=== PATIENT | female | born 1960 | race Caucasian/White ===

== ENCOUNTER 2017-12-02 10:25 | Inpatient (IN) | payer MEDICARE ==
[~2017-12-02] VITALS: Ht 149.9 cm; Wt 49.4 kg
--- NOTE | ~2017-12-02 | CN ---
PATIENT NAME:ANTONINO ALMARAZ MEDICAL RECORD: [id number] : 64 LOCATION:D.MS [id number] ADMIT DATE: 12/02/17 ACCOUNT: [id number] CONSULTING PHYSICIAN: MCKENZIE BROWN MD REFERRING PHYSICIAN: SUSAN YOO MD DATE OF CONSULTATION: 12/09/2017 Surgery Consultation CHIEF COMPLAINT: Lung cancer. I have been asked to see the patient regarding placing a port. I told her I will try to place it on the left side and if I was unable to then I would place it on the right side. The patient has undergone a lung biopsy. The patient requires IV access for chemotherapy. This is a consultation note addendum. For the typed portion of consultation note, please see the chart. The risks, possible complications and alternatives to procedure were explained to the patient. She elects to proceed. The discussion specifically included, but was not limited to, bleeding or requiring emergency reoperation, infection, the possibility that the port might flip, possibility that the port could become infected, could clot off or break. There were no aggravating factors. No alleviating factors. Symptoms are difficult to characterize. For the typed portion of the consult note, please see the chart. This would include the past medical and surgical history, current medications, allergies, family history as well as social history. REVIEW OF SYSTEMS: No nausea, no vomiting, no fever, no chills. Positive for shortness of breath. Positive for dyspnea on exertion. No chest pain except at the biopsy site. The review of systems is negative other than as is described above. PHYSICAL EXAMINATION: GENERAL: She does appear chronically ill. VITAL SIGNS: Reviewed. The entire physical examination was performed with the presence of a female nurse. EARS: External ears appear normal. EYES: Extraocular movements are intact. NECK: Trachea is midline. CHEST: No intercostal retractions. PULMONARY: Nonlabored, no stridor. ABDOMEN: Nontender. EXTREMITIES: No peripheral cyanosis. INTEGUMENT: No rash, no ulcerations. PSYCHIATRIC: Normal affect. NEUROLOGIC: Nonfocal, no lethargy. The patient answers questions appropriately, moves all extremities well. BACK: No thoracic kyphosis. LYMPHATIC: No lymphangitic streaking of the exposed extremities. IMPRESSION: Lung cancer, in need of IV access for chemotherapy. PLAN: Placement of a PowerPort, left versus right. TRANSINT:[id number] Voice Confirmation ID: [id number] DOCUMENT ID: [id number] CONSULT REPORT [id number] ANTONINO ALMARAZ ROBERT MD at 1042 CC: RYDER CASTELLANOS MD and SUSAN YOO [id number] DICTATION DATE: 12/09/17 1006 WOOD MACHINE CARVER: 12/09/17 1038 DIS IN 12/12/17 [place] [id number] [place] [id number]
--- NOTE | ~2017-12-02 | OP ---
PATIENT NAME: ANTONINO ALMARAZ MEDICAL RECORD: [id number] :64 LOCATION:D.MS [id number] ADMISSION DATE:12/02/17 SURGEON: JOSE EDUARDO BROWN MD DATE OF OPERATION: 12/09/2017 PREOPERATIVE DIAGNOSIS: Lung cancer in need of IV access for chemotherapy. POSTOPERATIVE DIAGNOSIS: Lung cancer in need of IV access for chemotherapy. PROCEDURES: 1. Placement of left infraclavicular PowerPort via cephalic vein cutdown, under fluoroscopic guidance. 2. Immediate surgeon interpretation of the fluoroscopic images. SURGEON: Jose Eduardo Brown MD WORKERS COMPENSATION ADJUSTER: None. BLOOD LOSS: Minimal. ANESTHESIA: General. COMPLICATIONS: None. The risks, possible complications, and alternatives to procedure were explained to the patient. The patient elected to proceed. The discussion specifically included, but was not limited to, bleeding requiring an emergency reoperation, infection, flippage of the port, clotting off of the port. The patient elected to proceed. OPERATIVE COURSE: The patient was conveyed to the operating room electively. General anesthesia was induced by the anesthesia staff. The left neck and left chest were sterilely prepped and draped. A transverse incision was accomplished inferior to the left clavicle. Sharp dissection was carried down to the level of the pectoralis fascia. A subcutaneous pocket was created bluntly in a caudad direction. Some of the adipose tissue was excised from the anterior portion of the pocket to allow for easier access of the port. I dissected down in the deltopectoral groove and identified a generous cephalic vein. Two ties were placed on the cephalic vein laterally and one loose tie was placed medially. A small venotomy was accomplished. Through the venotomy, the PowerPort catheter was advanced. This was advanced under fluoroscopy. No radiologist was present for this procedure. Static fluoroscopic images were obtained and are kept in the PACS system. The surgeon interpretation of the radiographic images is dictated within the body of this operative note. The catheter was advanced to the cavoatrial junction. The catheter was shortened. It was attached to the PowerPort. The locking device was firmly engaged. The medial tie was then tied down and another tie, this one a 3-0 Vicryl, was placed around the vein medially. I then divided the vein between the ties. The port was placed in the subcutaneous pocket and sutured to the underlying pectoralis fascia with 3-point fixation utilizing 3-0 Prolenes. I irrigated in the subcutaneous pocket and there was no bleeding. The subdermis was approximated with interrupted 3-0 Vicryls. The skin was approximated with a running intracuticular 4-0 Vicryl. I then accessed the port. It accessed easily. I aspirated dark, nonpulsatile blood. It also flushed easily as well. OPERATIVE REPORT [id number] ANTONINO ALMARAZ A sterile dressing was applied. The patient was then conveyed to the postanesthesia care unit. TRANSINT:[id number] Voice Confirmation ID: [id number] DOCUMENT ID: [id number] JOSE EDUARDO BROWN MD at 1042 CC: [id number] DICTATION DATE: 12/09/17 1317 CROWN BLOCKER: 12/09/17 1343 DIS IN 12/12/17 [place] [address] [place] [address]
[2017-12-02 11:33] LABS: BASOPHILS 0.4 % (0-2); EOSINOPHILS 0.6 % (0-7); HEMATOCRIT 45.8 % (36.0-48.0); HEMOGLOBIN 16.1 g/dL (12-16); IMMATURE GRANULOCYTES 0.2 % (0-5); LYMPHOCYTES 25.5 % (15-50); MCH 34.8 pg (26.0-34.0); MCHC 35.2 g/dL (31.0-37.0); MCV 99.1 fL (80.0-100.0); MEAN PLATELET VOLUME 10.1 fL (7.4-10.4); MONOCYTES 12.5 % (2-11); NEUTROPHILS 60.8 % (40-80); PLATELET COUNT 310 10x3/uL (130-400); RBC 4.62 10x6/uL (4.00-5.40); RDW 12.7 % (11.5-14.5); WBC 9.9 10x3/uL (4.8-10.8)
[2017-12-02 11:50] LABS: ALBUMIN 3.1 g/dL (3.4-5.0); ALKALINE PHOSPHATASE 81 U/L (46-116); BILIRUBIN - TOTAL 0.22 mg/dL (0.2-1.3); CALC OSMOLALITY 267 mosm/kg (275-300); CALCIUM 9.2 mg/dL (8.5-10.1); CARBON DIOXIDE 28.9 mmol/L (21.0-32.0); CHLORIDE - SERUM 98 mmol/L (98-107); CREATININE - SERUM 0.6 mg/dL (0.6-1.3); GLUCOSE 87 mg/dL (74-106); PROTEIN - SERUM 7.5 g/dL (6.4-8.2); SODIUM 136 mmol/L (136-145); UREA NITROGEN 4 mg/dL (7-18); eGFR NON AFRICAN AMERICAN > 90 mL/min (90-120)
[2017-12-02 12:28] LABS: ALT (SGPT) 28 U/L (10-68)
[2017-12-02 21:09] VITALS: BP 148/76
[2017-12-02] MEDS ORDERED: ELAVIL75 MG PO (21:22)
[2017-12-02] MEDS ORDERED: CELEXA40 MG PO (21:23)
[2017-12-02] MEDS ORDERED: VALIUM5 MG PO (21:24)
[2017-12-02] MEDS ORDERED: NORVASC5 MG PO (21:24)
[2017-12-02] MEDS ORDERED: SOMA350 MG PO (21:25)
[2017-12-02] MEDS ORDERED: HYDROCODONE-APA1 TAB PO (21:25)
[2017-12-02] MEDS ORDERED: [UNRECOGNIZED DRUG - OTHER] INH (21:26)
[2017-12-02] MEDS ORDERED: INCRUSE INH (21:26)
[2017-12-02] MEDS ORDERED: IMODIUM2 MG PO (21:27)
[2017-12-03 01:38] VITALS: BP 127/58
[2017-12-03 03:36] VITALS: BMI 22.2
[2017-12-03 04:42] VITALS: BP 138/78
[2017-12-03 09:37] VITALS: BP 139/73
[2017-12-03 10:21] LABS: INR 0.93 (0.85-1.17); PROTIME 12.1 SECONDS (11.6-15.0)
[2017-12-03 12:20] VITALS: BP 160/80
[2017-12-03 13:03] VITALS: BMI 22.2
[2017-12-03 17:05] VITALS: BP 104/62
[2017-12-03 21:39] VITALS: BP 144/74
[2017-12-04] VITALS (11 sets, daily range): BP systolic 114–155; BP diastolic 71–82
[2017-12-04 05:57] LABS: BASOPHILS 0.1 % (0-2); EOSINOPHILS 0 % (0-7); HEMATOCRIT 44.1 % (36.0-48.0); HEMOGLOBIN 15.2 g/dL (12-16); IMMATURE GRANULOCYTES 0.7 % (0-5); LYMPHOCYTES 10.4 % (15-50); MCH 34.2 pg (26.0-34.0); MCHC 34.5 g/dL (31.0-37.0); MCV 99.3 fL (80.0-100.0); MEAN PLATELET VOLUME 10.1 fL (7.4-10.4); MONOCYTES 3.5 % (2-11); NEUTROPHILS 85.3 % (40-80); PLATELET COUNT 309 10x3/uL (130-400); RBC 4.44 10x6/uL (4.00-5.40); RDW 12.9 % (11.5-14.5); WBC 10.2 10x3/uL (4.8-10.8)
[2017-12-04 06:02] LABS: CARBON DIOXIDE 28.2 mmol/L (21.0-32.0); CHLORIDE - SERUM 102 mmol/L (98-107); CREATININE - SERUM 0.7 mg/dL (0.6-1.3); SODIUM 140 mmol/L (136-145); eGFR NON AFRICAN AMERICAN > 90 mL/min (90-120)
[2017-12-04 06:03] LABS: CALC OSMOLALITY 280 mosm/kg (275-300); GLUCOSE 145 mg/dL (74-106); POTASSIUM - SERUM 3.5 mmol/L (3.5-5.1); UREA NITROGEN 10 mg/dL (7-18)
[2017-12-04 06:04] LABS: INR 0.91 (0.85-1.17); PROTIME 11.8 SECONDS (11.6-15.0)
[2017-12-05 02:50] VITALS: BP 142/88
[2017-12-05 05:05] LABS: BASOPHILS 0.1 % (0-2); EOSINOPHILS 0 % (0-7); HEMATOCRIT 45.1 % (36.0-48.0); HEMOGLOBIN 15.3 g/dL (12-16); LYMPHOCYTES 9.4 % (15-50); MCH 34.3 pg (26.0-34.0); MCHC 33.9 g/dL (31.0-37.0); MCV 101.1 fL (80.0-100.0); MEAN PLATELET VOLUME 10.4 fL (7.4-10.4); MONOCYTES 6.4 % (2-11); NEUTROPHILS 83.1 % (40-80); PLATELET COUNT 345 10x3/uL (130-400); RBC 4.46 10x6/uL (4.00-5.40); RDW 13.2 % (11.5-14.5)
[2017-12-05 05:16] LABS: WBC 13.6 10x3/uL (4.8-10.8)
[2017-12-05 05:31] LABS: CALC OSMOLALITY 280 mosm/kg (275-300); CALCIUM 8.9 mg/dL (8.5-10.1); CARBON DIOXIDE 27.4 mmol/L (21.0-32.0); CHLORIDE - SERUM 100 mmol/L (98-107); CREATININE - SERUM 0.7 mg/dL (0.6-1.3); GLUCOSE 131 mg/dL (74-106); POTASSIUM - SERUM 3.5 mmol/L (3.5-5.1); SODIUM 139 mmol/L (136-145); eGFR NON AFRICAN AMERICAN > 90 mL/min (90-120)
[2017-12-05 05:32] LABS: UREA NITROGEN 14 mg/dL (7-18)
[2017-12-05 05:54] VITALS: BP 113/102
[2017-12-05 07:41] VITALS: BP 125/93
[2017-12-05 11:10] VITALS: BP 152/88
[2017-12-05 15:16] VITALS: BP 138/54
[2017-12-05 22:24] VITALS: BP 110/83
[2017-12-06 02:24] VITALS: BP 124/74
[2017-12-06 05:25] VITALS: BP 136/81
[2017-12-06 05:58] LABS: BASOPHILS 0.1 % (0-2); EOSINOPHILS 0 % (0-7); HEMATOCRIT 40.6 % (36.0-48.0); HEMOGLOBIN 13.8 g/dL (12-16); IMMATURE GRANULOCYTES 1.3 % (0-5); LYMPHOCYTES 7.4 % (15-50); MCH 34.1 pg (26.0-34.0); MCV 100.2 fL (80.0-100.0); MEAN PLATELET VOLUME 10.3 fL (7.4-10.4); MONOCYTES 7.8 % (2-11); NEUTROPHILS 83.4 % (40-80); PLATELET COUNT 323 10x3/uL (130-400); RBC 4.05 10x6/uL (4.00-5.40); RDW 13.1 % (11.5-14.5); WBC 12.7 10x3/uL (4.8-10.8)
[2017-12-06 06:15] LABS: CALC OSMOLALITY 281 mosm/kg (275-300); CALCIUM 8.5 mg/dL (8.5-10.1); CARBON DIOXIDE 29.1 mmol/L (21.0-32.0); CHLORIDE - SERUM 102 mmol/L (98-107); CREATININE - SERUM 0.6 mg/dL (0.6-1.3); GLUCOSE 176 mg/dL (74-106); POTASSIUM - SERUM 3.4 mmol/L (3.5-5.1); SODIUM 139 mmol/L (136-145); UREA NITROGEN 12 mg/dL (7-18); eGFR NON AFRICAN AMERICAN > 90 mL/min (90-120)
[2017-12-06 08:00] VITALS: BP 144/77
[2017-12-06 11:30] VITALS: BP 137/76
[2017-12-06 14:09] LABS: IMMUNOGLOBULIN A 242 mg/dL (87-352); IMMUNOGLOBULIN G 739 mg/dL (700-1600)
[2017-12-06 15:30] VITALS: BP 144/77
[2017-12-06 21:51] VITALS: BP 120/84
[2017-12-07 01:33] VITALS: BP 134/74
[2017-12-07 05:05] VITALS: BP 138/78
[2017-12-07 06:02] LABS: BASOPHILS 0.1 % (0-2); EOSINOPHILS 0 % (0-7); HEMATOCRIT 40.9 % (36.0-48.0); IMMATURE GRANULOCYTES 1.4 % (0-5); LYMPHOCYTES 9.2 % (15-50); MCH 34.4 pg (26.0-34.0); MCHC 34.2 g/dL (31.0-37.0); MCV 100.5 fL (80.0-100.0); MEAN PLATELET VOLUME 10.1 fL (7.4-10.4); MONOCYTES 8.8 % (2-11); NEUTROPHILS 80.5 % (40-80); PLATELET COUNT 352 10x3/uL (130-400); RBC 4.07 10x6/uL (4.00-5.40); RDW 13.1 % (11.5-14.5); WBC 15.7 10x3/uL (4.8-10.8)
[2017-12-07 06:15] LABS: CALC OSMOLALITY 284 mosm/kg (275-300); CALCIUM 8.5 mg/dL (8.5-10.1); CARBON DIOXIDE 29.9 mmol/L (21.0-32.0); CHLORIDE - SERUM 103 mmol/L (98-107); CREATININE - SERUM 0.6 mg/dL (0.6-1.3); GLUCOSE 134 mg/dL (74-106); POTASSIUM - SERUM 3.2 mmol/L (3.5-5.1); SODIUM 142 mmol/L (136-145); UREA NITROGEN 13 mg/dL (7-18); eGFR NON AFRICAN AMERICAN > 90 mL/min (90-120)
[2017-12-07 09:38] VITALS: BP 130/86
[2017-12-07 15:04] VITALS: BP 129/84
[2017-12-07 16:52] VITALS: Ht 149.9 cm; Wt 49.4 kg
[2017-12-07 18:59] VITALS: BP 151/81
[2017-12-07 23:59] VITALS: BP 163/83
[2017-12-08 04:17] VITALS: BP 119/68
[2017-12-08 08:40] VITALS: BP 143/67
[2017-12-08 13:03] VITALS: BP 144/77
[2017-12-08 16:59] VITALS: BP 137/73
[2017-12-08 20:22] VITALS: BP 122/74
[2017-12-09] VITALS (10 sets, daily range): BP systolic 118–142; BP diastolic 54–82
[2017-12-10] VITALS (17 sets, daily range): BP systolic 117–150; BP diastolic 57–98
[2017-12-10 06:38] LABS: WBC 21.6 10x3/uL (4.8-10.8)
[2017-12-10 06:39] LABS: HEMATOCRIT 38.9 % (36.0-48.0); MCH 33.5 pg (26.0-34.0); MCHC 33.4 g/dL (31.0-37.0); MCV 100.3 fL (80.0-100.0); PLATELET COUNT 352 10x3/uL (130-400); RBC 3.88 10x6/uL (4.00-5.40); RDW 13.2 % (11.5-14.5)
[2017-12-10 06:54] LABS: CALC OSMOLALITY 282 mosm/kg (275-300); CALCIUM 8.2 mg/dL (8.5-10.1); CARBON DIOXIDE 28.7 mmol/L (21.0-32.0); CHLORIDE - SERUM 101 mmol/L (98-107); CREATININE - SERUM 0.6 mg/dL (0.6-1.3); GLUCOSE 176 mg/dL (74-106); POTASSIUM - SERUM 3.5 mmol/L (3.5-5.1); SODIUM 139 mmol/L (136-145); UREA NITROGEN 16 mg/dL (7-18); eGFR NON AFRICAN AMERICAN > 90 mL/min (90-120)
[2017-12-10 07:25] LABS: LYMPHOCYTES 5 % (15-50); MONOCYTES 7 % (2-11); NEUTROPHILS 88 % (40-80)
[2017-12-10 07:26] LABS: PLATELET ESTIMATE NORMAL
[2017-12-10 11:22] LABS: IMMUNOGLOBULIN E 160 IU/mL (0-100)
[2017-12-11] VITALS (10 sets, daily range): BP systolic 107–153; BP diastolic 55–87
[2017-12-12] VITALS (9 sets, daily range): BP systolic 125–141; BP diastolic 60–94
[2017-12-12] MEDS ORDERED: MEDROL DOSE PACK4 MG PO (10:42)
[2017-12-12] MEDS ORDERED: DURAGESIC1 PATCH .7 TRANSDERM (10:42)
[2017-12-12] MEDS ORDERED: COMPAZINE10 MG PO ×2 (11:33→11:48)
[2017-12-12] MEDS ORDERED: ZOFRAN8 MG PO ×2 (11:33→11:48)
[2017-12-12] MEDS ORDERED: SYMBICORT 16010.2 GM INH (14:30)
[2017-12-12] MEDS ORDERED: IPRAT-ALBUT 0.5-3 ML UPD (14:30)
[2017-12-12] MEDS ORDERED: BROVANA15 MCG/2 M INH (14:30)
== END 2017-12-12 15:30 | disposition home or self-care (01) | DRG 180 ==
LOC: D.ER 10:25 → D.MS 15:42 → D.EDHOLD 15:42 → D.MS 18:42
PROVIDERS: Family Medicine; General Practice; Internal Medicine Pulmonary Disease; Physician Assistant; Radiology Vascular & Interventional Radiology; Surgery
PROC: 0BBC3ZX Excision of Right Upper Lung Lobe, Percutaneous Approach, Diagnostic (ICD-10-PCS; principal; 2017-12-04 08:20)
PROC: 0JH63XZ Insertion of Tunneled Vascular Access Device into Chest Subcutaneous Tissue and Fascia, Percutaneous Approach (ICD-10-PCS; 2017-12-09)
PROC: 3E03305 Introduction of Other Antineoplastic into Peripheral Vein, Percutaneous Approach (ICD-10-PCS; 2017-12-09 08:00)
DX: C7A.090 Malignant carcinoid tumor of the bronchus and lung (principal); J18.9 Pneumonia, unspecified organism; J44.0 Chronic obstructive pulmonary disease with (acute) lower respiratory infection; M35.1 Other overlap syndromes; L76.32 Postprocedural hematoma of skin and subcutaneous tissue following other procedure; I10 Essential (primary) hypertension; F41.0 Panic disorder [episodic paroxysmal anxiety]; F41.9 Anxiety disorder, unspecified; J02.9 Acute pharyngitis, unspecified; R56.9 Unspecified convulsions; E87.6 Hypokalemia; Y84.8 Other medical procedures as the cause of abnormal reaction of the patient, or of later complication, without mention of misadventure at the time of the procedure; R09.1 Pleurisy

== ENCOUNTER 2018-01-26 10:40 | Day surgery (SDC) | payer MEDICARE ==
[2018-01-25 15:12] LABS: BASOPHILS 0.2 % (0-2); EOSINOPHILS 0.2 % (0-7); HEMATOCRIT 29.2 % (36.0-48.0); HEMOGLOBIN 10.3 g/dL (12-16); IMMATURE GRANULOCYTES 0.7 % (0-5); LYMPHOCYTES 26.4 % (15-50); MCHC 35.3 g/dL (31.0-37.0); MCV 99.3 fL (80.0-100.0); MEAN PLATELET VOLUME 8.6 fL (7.4-10.4); NEUTROPHILS 70.5 % (40-80); RBC 2.94 10x6/uL (4.00-5.40); RDW 16.3 % (11.5-14.5); WBC 11.3 10x3/uL (4.8-10.8)
[2018-01-25 15:21] LABS: APTT 24.9 SECONDS (22.8-39.4); INR 0.93 (0.85-1.17); PROTIME 12.1 SECONDS (11.6-15.0)
[2018-01-25 15:35] LABS: PLATELET COUNT 268 10x3/uL (130-400)
[~2018-01-26] VITALS: Ht 149.9 cm; Wt 54.4 kg
--- NOTE | ~2018-01-26 | OP ---
PATIENT NAME: ANTONINO ALMARAZ MEDICAL RECORD: [id number] :64 LOCATION:D.[facility] ADMISSION DATE: SURGEON: MCKENZIE BROWN MD DATE OF OPERATION: 01/26/2018 PREOPERATIVE DIAGNOSES: 1. Lung cancer. 2. Port pocket hematoma secondary to a fall. POSTOPERATIVE DIAGNOSES: 1. Lung cancer. 2. No port pocket hematoma. A port pocket abscess was noted. PROCEDURE: 1. Incision and drainage of port pocket abscess. 2. Removal of a PowerPort and vascular catheter in their entirety. SURGEON: Mckenzie Brown MD GOLF CLUB FACER: None. BLOOD LOSS: Minimal. ANESTHESIA: General. COMPLICATIONS: None. INDICATION: The patient gives a history of a fall where she fell directly on her port. She has poor vision. She was experiencing pain. The clinical scenario was one where she likely had a port pocket hematoma. There was a significant amount of erythema over the port pocket. There was a ballottable fluid. No drainage. OPERATIVE COURSE: The patient was conveyed to the operating room electively on 01/26/2018. General anesthesia was induced by the anesthesia staff. The left chest was sterilely prepped and draped. An incision was accomplished through the patient's transverse infraclavicular scar. Sharp dissection was carried down to the level of an abscess cavity. Cultures were obtained. The PowerPort was delivered. I then removed the PowerPort and oversewed the fibrous tract into the vascular system with a [id number] 3-0 Vicryl. We then irrigated the PowerPort pocket with hydrogen peroxide. There was no further bleeding. The subdermis was approximated with multiple interrupted 3-0 Vicryl sutures. I spaced these widely in order to allow for drainage of any fluid from the port pocket. A sterile dressing was applied. The patient was then extubated and conveyed to the post-anesthesia care unit where she was in stable condition. TRANSINT:[id number] Voice Confirmation ID: [id number] DOCUMENT ID: [id number] OPERATIVE REPORT [id number] ANTONINO ALMARAZ ROBERT MD at 1157 CC: SEMAJ ROSEN MD and SUSAN YOO [id number] DICTATION DATE: 01/26/18 1350 BULKING MACHINE OPERATOR: 01/26/18 1512 [facility] 01/26/18 [facility] [address] [place] [address]
[~2018-01-26 10:40] MED LIST: BROVANA15 MCG/2 M INH; CELEXA40 MG PO; COMPAZINE10 MG PO; DURAGESIC1 PATCH .7 TRANSDERM; ELAVIL75 MG PO; HYDROCODONE-APA1 TAB PO; IMODIUM2 MG PO; INCRUSE INH; IPRAT-ALBUT 0.5-3 ML UPD; MEDROL DOSE PACK4 MG PO; NORVASC5 MG PO; SOMA350 MG PO; SYMBICORT 16010.2 GM INH; VALIUM5 MG PO; ZOFRAN8 MG PO; [UNRECOGNIZED DRUG - OTHER] INH
[2018-01-26 10:59] VITALS: Ht 149.9 cm; Wt 54.4 kg
== END 2018-01-26 15:50 | disposition home or self-care (01) ==
LOC: D.OPS 10:40 → D.PAN 13:00 → D.OPS 13:00
PROVIDERS: Anesthesiology
DX: T82.838A Hemorrhage due to vascular prosthetic devices, implants and grafts, initial encounter (principal); J43.9 Emphysema, unspecified; K21.9 Gastro-esophageal reflux disease without esophagitis; I10 Essential (primary) hypertension; Z87.891 Personal history of nicotine dependence; G40.909 Epilepsy, unspecified, not intractable, without status epilepticus; Z01.812 Encounter for preprocedural laboratory examination; C34.90 Malignant neoplasm of unspecified part of unspecified bronchus or lung

== ENCOUNTER 2018-02-05 12:03 | Emergency (ER) | payer MEDICARE ==
[2018-01-26 10:59] VITALS: BMI 24.3
[2018-02-05 14:20] LABS: ALBUMIN 3.7 g/dL (3.4-5.0); ALKALINE PHOSPHATASE 96 U/L (46-116); ALT (SGPT) 28 U/L (10-68); BILIRUBIN - TOTAL 0.26 mg/dL (0.2-1.3); CALC OSMOLALITY 281 mosm/kg (275-300); CALCIUM 8.9 mg/dL (8.5-10.1); CARBON DIOXIDE 27.3 mmol/L (21.0-32.0); CHLORIDE - SERUM 104 mmol/L (98-107); CREATININE - SERUM 0.5 mg/dL (0.6-1.3); GLUCOSE 106 mg/dL (74-106); POTASSIUM - SERUM 3.4 mmol/L (3.5-5.1); PROTEIN - SERUM 7.5 g/dL (6.4-8.2); SODIUM 142 mmol/L (136-145); UREA NITROGEN 9 mg/dL (7-18); eGFR NON AFRICAN AMERICAN > 90 mL/min (90-120)
[2018-02-05 14:23] LABS: BASOPHILS 0.3 % (0-2); EOSINOPHILS 0.3 % (0-7); HEMATOCRIT 29.2 % (36.0-48.0); HEMOGLOBIN 10.2 g/dL (12-16); IMMATURE GRANULOCYTES 0.3 % (0-5); LYMPHOCYTES 58.3 % (15-50); MCH 35.9 pg (26.0-34.0); MCHC 34.9 g/dL (31.0-37.0); MCV 102.8 fL (80.0-100.0); MEAN PLATELET VOLUME 9.8 fL (7.4-10.4); MONOCYTES 14.8 % (2-11); RBC 2.84 10x6/uL (4.00-5.40); RDW 19.1 % (11.5-14.5); WBC 3.8 10x3/uL (4.8-10.8)
[2018-02-05 14:27] LABS: PLATELET COUNT 135 10x3/uL (130-400)
== END 2018-02-05 15:30 | disposition home or self-care (01) ==
LOC: D.ER 12:03
PROVIDERS: Nurse Practitioner Family
DX: L02.213 Cutaneous abscess of chest wall (principal); J44.9 Chronic obstructive pulmonary disease, unspecified

== ENCOUNTER 2018-02-08 09:06 | Day surgery (SDC) | payer MEDICARE ==
[~2018-02-08] VITALS: Ht 149.9 cm; Wt 54.9 kg
--- NOTE | ~2018-02-08 | OP ---
PATIENT NAME: ANTONINO ALMARAZ MEDICAL RECORD: [id number] :64 LOCATION:.[facility] ADMISSION DATE: SURGEON: JOS EEDUARDO BROWN MD DATE OF OPERATION: 02/08/2018 PREOPERATIVE DIAGNOSIS: Port pocket hematoma, left anterior chest. POSTOPERATIVE DIAGNOSIS: Port pocket hematoma, left anterior chest. PROCEDURE: Incision and drainage of the port pocket hematoma of the left anterior chest with placement of drain. SURGEON: Jose Eduardo Brown MD FLASHER ADJUSTER: None. BLOOD LOSS: Minimal. ANESTHESIA: General. COMPLICATIONS: None. The risks, possible complications, and alternatives to the procedure were explained to the patient. She elects to proceed. I saw her in my office earlier today. They are holding off on chemotherapy until her port pocket site heals. OPERATIVE COURSE: The patient was conveyed to the operating room electively on 02/08/2018. General anesthesia was induced by the anesthesia staff. The left chest was sterilely prepped and draped. I incised through the port pocket scar. I dissected down into the port pocket. Hematoma was identified. This was expressed. Cultures were obtained. I irrigated in the port pocket. I brought a 10-Tajik round fully fluted drain and this was sutured to skin with a 2-0 nylon. I then closed the main incision with a running 3-0 Vicryl suture. A pressure dressing was then applied. The patient was then extubated and conveyed to the post-anesthesia care unit where she was in stable condition. TRANSINT:[id number] Voice Confirmation ID: [id number] DOCUMENT ID: [id number] JOSE EDUARDO BROWN MD at 1227 CC: [id number] DICTATION DATE: 02/08/18 1643 SUPERINTENDENT CEMETERY: 02/08/18 2140 [facility] 02/08/18 [place] [id number] [place] [address]
[2018-02-08] MEDS ORDERED: CLEOCIN HCL150 MG PO (10:14)
[2018-02-08 10:43] VITALS: BP 128/71; Ht 149.9 cm; Wt 54.9 kg
== END 2018-02-08 15:55 | disposition home or self-care (01) ==
LOC: D.OPS 09:06
DX: T82.898A Other specified complication of vascular prosthetic devices, implants and grafts, initial encounter (principal); L76.32 Postprocedural hematoma of skin and subcutaneous tissue following other procedure; Z01.812 Encounter for preprocedural laboratory examination

== ENCOUNTER → 2018-03-01 07:46 | Outpatient (CLI) | payer MEDICARE ==
[2018-02-08 10:43] VITALS: BMI 24.5
[~2018-03-01 07:46] MED LIST changes: +CLEOCIN HCL150 MG PO
== END | disposition home or self-care (01) ==
LOC: D.CT 02-25 15:30
DX: C34.10 Malignant neoplasm of upper lobe, unspecified bronchus or lung (principal)

== ENCOUNTER → 2018-07-12 10:09 | Outpatient (CLI) | payer MEDICARE ==
[2018-02-08 10:43] VITALS: BMI 24.5
== END | disposition home or self-care (01) ==
LOC: D.CT 07-05 16:00
DX: C34.11 Malignant neoplasm of upper lobe, right bronchus or lung (principal)

== ENCOUNTER → 2018-09-17 13:01 | Outpatient (CLI) | payer MEDICARE ==
[2018-02-08 10:43] VITALS: BMI 24.5
== END | disposition home or self-care (01) ==
LOC: D.CT 13:01
DX: R06.02 Shortness of breath (principal); J44.9 Chronic obstructive pulmonary disease, unspecified; R91.8 Other nonspecific abnormal finding of lung field; C34.11 Malignant neoplasm of upper lobe, right bronchus or lung

== ENCOUNTER 2019-01-10 14:50 | Emergency (ER) | payer MEDICARE ==
[~2019-01-10] VITALS: Ht 149.9 cm; Wt 63.2 kg
[2019-01-10 14:56] VITALS: Ht 149.9 cm; Wt 63.2 kg
[2019-01-10 16:46] LABS: BASOPHILS 0.1 % (0-2); EOSINOPHILS 0.5 % (0-7); HEMATOCRIT 40.9 % (36.0-48.0); HEMOGLOBIN 14.4 g/dL (12-16); IMMATURE GRANULOCYTES 0.5 % (0-5); MCH 34.9 pg (26.0-34.0); MCHC 35.2 g/dL (31.0-37.0); MEAN PLATELET VOLUME 9.6 fL (7.4-10.4); MONOCYTES 9.9 % (2-11); RBC 4.13 10x6/uL (4.00-5.40); RDW 12.8 % (11.5-14.5); WBC 10.8 10x3/uL (4.8-10.8)
[2019-01-10 16:57] LABS: PLATELET COUNT 270 10x3/uL (130-400)
[2019-01-10 17:13] LABS: ALBUMIN 3.9 g/dL (3.4-5.0); ALKALINE PHOSPHATASE 65 U/L (46-116); ALT (SGPT) 58 U/L (10-68); BILIRUBIN - TOTAL 0.26 mg/dL (0.2-1.3); CALC OSMOLALITY 274 mosm/kg (275-300); CALCIUM 8.6 mg/dL (8.5-10.1); CARBON DIOXIDE 26.1 mmol/L (21.0-32.0); CHLORIDE - SERUM 100 mmol/L (98-107); CREATINE KINASE 47 UL (21-215); CREATININE - SERUM 0.7 mg/dL (0.6-1.3); GLUCOSE 117 mg/dL (74-106); POTASSIUM - SERUM 3.4 mmol/L (3.5-5.1); PROTEIN - SERUM 7.4 g/dL (6.4-8.2); SODIUM 137 mmol/L (136-145); UREA NITROGEN 13 mg/dL (7-18); eGFR NON AFRICAN AMERICAN > 90 mL/min (90-120)
[2019-01-10 17:43] VITALS: BP 108/63
== END 2019-01-10 17:44 | disposition home or self-care (01) ==
LOC: D.ER 14:50
PROVIDERS: Family Medicine
DX: E87.6 Hypokalemia (principal); R51 Headache; C34.90 Malignant neoplasm of unspecified part of unspecified bronchus or lung; C79.31 Secondary malignant neoplasm of brain

== ENCOUNTER 2019-02-18 13:48 | Inpatient (IN) | payer MEDICARE ==
[2019-02-18 14:00] VITALS: BP 111/64
[2019-02-18 14:42] LABS: APPEARANCE HAZY (CLEAR); COLOR YELLOW (YELLOW); NITRITE NEGATIVE (NEGATIVE)
[2019-02-18 14:43] LABS: BACTERIA MANY /hpf (NONE SEEN); BILIRUBIN NEGATIVE (NEGATIVE); EPITHELIAL CELLS 0-5 /hpf (0-5); GLUCOSE NEGATIVE (NEGATIVE); KETONE MODERATE mg/dL (NEGATIVE); PROTEIN 1+ mg/dL (NEGATIVE); RED CELLS - URINE 0-5 /hpf (0-5); UROBILINOGEN NORMAL (NORMAL)
[2019-02-18 14:45] LABS: MUCUS <1+ /lpf (NONE SEEN)
[2019-02-18 14:51] LABS: INR 1.14 (0.85-1.17)
[2019-02-18 14:52] LABS: APTT 30.1 SECONDS (22.8-39.4)
[2019-02-18 15:00] VITALS: BP 113/71
[2019-02-18 15:01] LABS: HEMATOCRIT 32.9 % (36.0-48.0); HEMOGLOBIN 12.2 g/dL (12-16); MCH 34.6 pg (26.0-34.0); MCHC 37.1 g/dL (31.0-37.0); MCV 93.2 fL (80.0-100.0); MEAN PLATELET VOLUME 9.9 fL (7.4-10.4); PLATELET COUNT 196 10x3/uL (130-400); RBC 3.53 10x6/uL (4.00-5.40); RDW 13.8 % (11.5-14.5); WBC 21.2 10x3/uL (4.8-10.8)
[2019-02-18 15:15] LABS: LYMPHOCYTES 11 % (15-50); MONOCYTES 5 % (2-11); NEUTROPHILS 84 % (40-80); PLATELET ESTIMATE NORMAL
[2019-02-18 15:18] LABS: ALBUMIN 2.5 g/dL (3.4-5.0); ALKALINE PHOSPHATASE 99 U/L (46-116); ALT (SGPT) 32 U/L (10-68); BILIRUBIN - TOTAL 0.83 mg/dL (0.2-1.3); CALC OSMOLALITY 251 mosm/kg (275-300); CALCIUM 8.8 mg/dL (8.5-10.1); CARBON DIOXIDE 26.4 mmol/L (21.0-32.0); CHLORIDE - SERUM 87 mmol/L (98-107); CKMB 1.3 U/L (0.0-3.6); CREATINE KINASE 96 UL (21-215); CREATININE - SERUM 0.8 mg/dL (0.6-1.3); GLUCOSE 104 mg/dL (74-106); PROTEIN - SERUM 7.3 g/dL (6.4-8.2); SODIUM 126 mmol/L (136-145); UREA NITROGEN 11 mg/dL (7-18); eGFR NON AFRICAN AMERICAN 78 mL/min (90-120)
[2019-02-18 15:23] LABS: POTASSIUM - SERUM 2.5 mmol/L (3.5-5.1); TROPONIN-I < 0.017 ng/mL (0.000-0.060)
[2019-02-18 16:00] VITALS: BP 93/77
[2019-02-18 17:00] VITALS: BP 94/51
--- NOTE | 2019-02-18 18:41 | NUR ---
RECEIVED TO ROOM 2239 VIA STRETCHER FROM ER. A/O X3. C/O PAIN BUT BP IS LOW AND HAVE NO ORDERS AT THIS TIME.
[2019-02-18 20:00] VITALS: BP 84/45
[2019-02-18 23:23] VITALS: BP 82/43; BMI 26.7
[2019-02-19] VITALS (7 sets, daily range): BP systolic 88–128; BP diastolic 42–67; BMI 26.6
--- NOTE | 2019-02-19 02:58 | NUR ---
CALL TO DR. NASH AT 2120 FOR B/P 84/45 -MAICOL B/P OF 78/45 ORDER TO HOLD SOMA, ELAVIL, AND VALIUM. GIVE NS 500ML BOLUS, AND INCREASE NS FROM 100ML/HR TO 125ML/HR. MEDS HELD, BOLUS GIVEN AND NS INCREASED TO 125ML/HR B/P INCRESED TO 122/60 AT 2330. RESTING IN BED NO NEEDS NOTED OR STATED.
--- NOTE | 2019-02-19 04:07 | NUR ---
RESTING IN BED WITH NO NEEDS NOTED OR STATED AT THIS TIME. IV TO LEFT FA IN PLACE AND [facility] [place]MEN , TELEMETRY IN PLACE RUNNING 91 SR.
--- NOTE | 2019-02-19 04:52 | NUR ---
BLOOD CULTERS WITH GRAM POSITIVE RODS, ON MERREN 1 GM EVERY 8 HOURS, AND VANCOMYUCIN 1 GM EVERY 12 HOURS.
[2019-02-19 07:25] LABS: WBC 20.9 10x3/uL (4.8-10.8)
[2019-02-19 07:26] LABS: CARBON DIOXIDE 27.1 mmol/L (21.0-32.0); CHLORIDE - SERUM 99 mmol/L (98-107); CREATININE - SERUM 0.7 mg/dL (0.6-1.3); GLUCOSE 115 mg/dL (74-106); HEMATOCRIT 31.7 % (36.0-48.0); HEMOGLOBIN 11.5 g/dL (12-16); MCH 34.3 pg (26.0-34.0); MCHC 36.3 g/dL (31.0-37.0); MCV 94.6 fL (80.0-100.0); MEAN PLATELET VOLUME 9.8 fL (7.4-10.4); PLATELET COUNT 188 10x3/uL (130-400); RBC 3.35 10x6/uL (4.00-5.40); RDW 14.4 % (11.5-14.5); SODIUM 134 mmol/L (136-145); eGFR NON AFRICAN AMERICAN > 90 mL/min (90-120)
[2019-02-19 07:33] LABS: CALC OSMOLALITY 266 mosm/kg (275-300); UREA NITROGEN 7 mg/dL (7-18)
[2019-02-19 07:35] LABS: POTASSIUM - SERUM 2.6 mmol/L (3.5-5.1)
[2019-02-19 07:51] LABS: LYMPHOCYTES 2 % (15-50); MONOCYTES 5 % (2-11); NEUTROPHILS 90 % (40-80); PLATELET ESTIMATE NORMAL
--- NOTE | 2019-02-19 08:00 | NUR ---
PT AAOX4 RESP EVEN AND NONLABORED, NO SIGNS OF DISTRESS NOTED, WILL CONTINUE TO MONITOR CL IN REACH
--- NOTE | 2019-02-19 21:26 | NUR ---
PATIENT B/P BY VANDA SANTOS RECHTARYN CALL TO DR NASH. HE RETRUNED STATED OK TO GIVE [id number], ELAVIL 50MG, AND VALIUM 5MG. GIVEN TO PATIENT.
[2019-02-20] VITALS: BP 105/75
--- NOTE | 2019-02-20 02:32 | NUR ---
RESTING IN BED WATER AND CALL LIGHT IN REACH NO NEEDS NOTED OR STATED.
[2019-02-20 04:00] VITALS: BP 112/68
[2019-02-20 05:44] LABS: BASOPHILS 0.3 % (0-2); EOSINOPHILS 1.1 % (0-7); HEMATOCRIT 29.8 % (36.0-48.0); HEMOGLOBIN 10.6 g/dL (12-16); IMMATURE GRANULOCYTES 0.7 % (0-5); LYMPHOCYTES 6.7 % (15-50); MCH 33.7 pg (26.0-34.0); MCHC 35.6 g/dL (31.0-37.0); MCV 94.6 fL (80.0-100.0); MEAN PLATELET VOLUME 9.3 fL (7.4-10.4); MONOCYTES 11.5 % (2-11); NEUTROPHILS 79.7 % (40-80); PLATELET COUNT 199 10x3/uL (130-400); RBC 3.15 10x6/uL (4.00-5.40); RDW 14.4 % (11.5-14.5)
[2019-02-20 05:51] LABS: WBC 11.9 10x3/uL (4.8-10.8)
[2019-02-20 06:03] LABS: CARBON DIOXIDE 28.6 mmol/L (21.0-32.0); CREATININE - SERUM 0.9 mg/dL (0.6-1.3)
[2019-02-20 06:04] LABS: POTASSIUM - SERUM 2.6 mmol/L (3.5-5.1)
[2019-02-20 08:51] VITALS: BP 120/67
[2019-02-20 12:41] VITALS: BP 102/70
--- NOTE | 2019-02-20 16:55 | NUR ---
I have reviewed this patient and I concur with the Shift Assessment completed by the Licensed Practical Nurse today this shift.
[2019-02-20 17:21] VITALS: BP 128/63
[2019-02-20 19:41] LABS: MAGNESIUM - SERUM 1.5 mg/dL (1.8-2.4)
[2019-02-20 19:47] LABS: POTASSIUM - SERUM 3.2 mmol/L (3.5-5.1)
[2019-02-21] VITALS: BP 158/89
[2019-02-21 04:00] VITALS: BP 175/85
[2019-02-21 06:33] LABS: BASOPHILS 0.1 % (0-2); EOSINOPHILS 0 % (0-7); HEMATOCRIT 31.6 % (36.0-48.0); HEMOGLOBIN 11.5 g/dL (12-16); LYMPHOCYTES 6.5 % (15-50); MCH 34.7 pg (26.0-34.0); MCHC 36.4 g/dL (31.0-37.0); MCV 95.5 fL (80.0-100.0); MEAN PLATELET VOLUME 9.3 fL (7.4-10.4); MONOCYTES 1.8 % (2-11); NEUTROPHILS 90.6 % (40-80); PLATELET COUNT 228 10x3/uL (130-400); RBC 3.31 10x6/uL (4.00-5.40)
[2019-02-21 06:39] LABS: WBC 7.2 10x3/uL (4.8-10.8)
[2019-02-21 06:41] LABS: CALC OSMOLALITY 283 mosm/kg (275-300); CALCIUM 8.7 mg/dL (8.5-10.1); CHLORIDE - SERUM 101 mmol/L (98-107); CREATININE - SERUM 0.7 mg/dL (0.6-1.3); GLUCOSE 195 mg/dL (74-106); MAGNESIUM - SERUM 1.5 mg/dL (1.8-2.4); SODIUM 141 mmol/L (136-145); UREA NITROGEN 7 mg/dL (7-18); eGFR NON AFRICAN AMERICAN > 90 mL/min (90-120)
[2019-02-21 06:42] LABS: POTASSIUM - SERUM 3.5 mmol/L (3.5-5.1)
--- NOTE | 2019-02-21 08:45 | NUR ---
PATIENT IN BED WITH IV INTACT. NO COMPLAINTS OR SIGNS OF DISTRESS. CALL LIGHT WITHIN REACH.
[2019-02-21 09:15] VITALS: BP 126/78
[2019-02-21 14:01] VITALS: BP 153/86
[2019-02-21 18:29] VITALS: BP 174/110
--- NOTE | 2019-02-21 18:45 | NUR ---
PATIENT IN BED WITH IV INTACT. NO COMPLAINTS OR SIGNS OF DISTRESS. CALL LIGHT WITHIN REACH.
--- NOTE | 2019-02-21 19:40 | NUR ---
PT RESTING IN BED, NO SIGNS OF DISTRESS. IV RIGHT AC INFUSING NS @ 125. STATES PAIN 10/10 AND THAT IT IS ALWAYS A 10. GAVE NORCO ORDERED. DENIES OTHER NEEDS. CL IN REACH, WILL CTM
[2019-02-21 20:00] VITALS: BP 169/80
--- NOTE | 2019-02-21 21:01 | HP ---
PATIENT: ANTONINO ALMARAZ MEDICAL RECORD: [id number] ACCOUNT: [id number] LOCATION:D.MS [id number] : 64 ADMISSION DATE: 02/18/19 PCP: SUSAN YOO MD HISTORY AND PHYSICAL EXAMINATION DATE OF ADMISSION: 02/18/2019 CHIEF COMPLAINT: Weakness and frequent falls. HISTORY: This is a 58-year-old female with history of small cell lung cancer. She has completed chemo and also completed radiation therapy about 3 weeks ago. She has had increased falls and weakness. She has pain in the right lung field. In the ER, her potassium was low at 2.5. Her blood pressure was low at 84/45. D-dimer was elevated at 4.49. Urinalysis showed many bacteria. Chest x-ray suggested right middle lobe infiltrate. White count was 21,000. CTA of the chest was then done for elevated D-dimer and it showed no PE, but there was right middle lobe infiltrate as well as infiltrate noted in the base of the right upper lobe. She is admitted. PAST MEDICAL AND SURGICAL HISTORY: Hypertension, COPD, depression, anxiety, osteoarthritis, and small cell lung cancer. PAST SURGICAL HISTORY: Hysterectomy. ALLERGIES: PENICILLIN AND MORPHINE. HOME MEDICATIONS: Include Brovana twice a day, Soma 350 mg twice a day, DuoNeb via updraft every 4 hours as needed, Norvasc 5 mg a day, Elavil 50 mg at bedtime, citalopram 40 mg a day, Valium 5 mg twice a day, [place] 10/325 two pills every 4 hours as needed for pain, Symbicort 160/4.5 two puffs twice a day, Imodium as needed for diarrhea, Zofran 8 mg q. 6 hours p.r.n. nausea, Compazine 10 mg q. 6 hours p.r.n. nausea, and Incruse one puff once a day. FAMILY HISTORY: Significant for lung disease, coronary artery disease, and cancer. HABITS: No tobacco, alcohol, or drugs currently. REVIEW OF SYSTEMS: GENERAL: She has had some generalized weight loss. HEENT: No particular sinus or allergy problems. RESPIRATORY: See above history with small cell lung cancer and COPD. CARDIAC: No known history. GASTROINTESTINAL: She has some heartburn. GENITOURINARY: No significant problems there. MUSCULOSKELETAL: She has few joint aches and pains. NEUROLOGIC: Denies migraines or seizures. PSYCHIATRIC: She has anxiety and depression. PHYSICAL EXAMINATION: VITAL SIGNS: Temperature 100.8, heart rate 113, respirations 18, blood pressure 111/64, and O2 sat 96% on 3 liters oxygen. GENERAL: She appears weak and otherwise in no distress. SKIN: Warm and dry. HEENT: Grossly within normal limits. HISTORY AND PHYSICAL [id number] ALMARAZ,ANTONINO NECK: Supple. No JVD or bruit. HEART: Tachycardic. LUNGS: Diminished breath sounds on the right side. No wheezes. ABDOMEN: Soft. EXTREMITIES: No edema. LABORATORY DATA: CBC with white count of 21,200, hemoglobin 12.2, and hematocrit 32.9. Basic metabolic panel is all okay except potassium low at 2.5. Liver functions are normal. Troponin less than 0.017. D-dimer high at 4.49. Urinalysis; yellow, hazy, 1+ protein, 2+ blood, 2+ leukocyte esterase, 10-25 white blood cells, and many bacteria. DIAGNOSTIC DATA: Chest x-ray; right middle lobe infiltrate. CTA of the chest with and without contrast shows no PE. Right middle lobe infiltrate is confirmed as well as infiltrate in the base of the right upper lobe. ASSESSMENT: 1. Pneumonia. 2. COPD. 3. History of small cell lung cancer, treated with chemo and radiation. 4. UTI. 5. Anxiety/depression. PLAN: She is started on vancomycin, Zosyn, and meropenem. Urine and blood cultures are done. Respiratory care. Other tests or procedures as warranted. TRANSINT:[id number] Voice Confirmation ID: [id number] DOCUMENT ID: [id number] OTIS NASH MD at 2101 CC: [id number] DICTATION DATE: 02/20/19 1122 CUSTODIAL OPERATIONS MANAGER: 02/20/19 1259 ADM IN [facility] [address] [place] [address]
--- NOTE | 2019-02-21 22:30 | NUR ---
PT PULLED OUT IV RIGHT AC WITH CATHETER TIP INTACT. 20G IV RESITED TO RIGHT FA X2 ATTEMPTS
[2019-02-22] VITALS: BP 143/73
[2019-02-22 04:00] VITALS: BP 142/99
[2019-02-22 05:16] LABS: BASOPHILS 0.1 % (0-2); EOSINOPHILS 0 % (0-7); HEMATOCRIT 34.2 % (36.0-48.0); HEMOGLOBIN 12.4 g/dL (12-16); IMMATURE GRANULOCYTES 1.1 % (0-5); LYMPHOCYTES 5.8 % (15-50); MCHC 36.3 g/dL (31.0-37.0); MCV 96.6 fL (80.0-100.0); MEAN PLATELET VOLUME 9.5 fL (7.4-10.4); MONOCYTES 7.2 % (2-11); NEUTROPHILS 85.8 % (40-80); PLATELET COUNT 221 10x3/uL (130-400); RBC 3.54 10x6/uL (4.00-5.40); RDW 15.2 % (11.5-14.5)
[2019-02-22 05:33] LABS: CALCIUM 8.9 mg/dL (8.5-10.1); CARBON DIOXIDE 33.9 mmol/L (21.0-32.0); CHLORIDE - SERUM 97 mmol/L (98-107); CREATININE - SERUM 0.7 mg/dL (0.6-1.3); MAGNESIUM - SERUM 1.3 mg/dL (1.8-2.4); POTASSIUM - SERUM 3.1 mmol/L (3.5-5.1); SODIUM 139 mmol/L (136-145); eGFR NON AFRICAN AMERICAN > 90 mL/min (90-120)
[2019-02-22 05:45] LABS: WBC 12.3 10x3/uL (4.8-10.8)
[2019-02-22 05:51] LABS: CALC OSMOLALITY 278 mosm/kg (275-300); GLUCOSE 128 mg/dL (74-106); UREA NITROGEN 10 mg/dL (7-18)
--- NOTE | 2019-02-22 08:15 | NUR ---
PATIENT IN BED WITH IV INTACT. NO COMPLAINTS OR SIGNS OF DISTRESS. CALL LIGHT WITHIN REACH.
[2019-02-22 08:45] VITALS: BP 166/97
--- NOTE | 2019-02-22 12:13 | MORECARE ---
CASE MANAGEMENT DISCHARGE SUMMARY PATIENT: ANTONINO ALMARAZ UNIT: [id number] ADM DATE: 02/18/19 AGE: 58 : 64 SEX: F ROOM/BED: D.2239 AUTHOR: JOSEFINA,DOC PHYSICIAN: REFERRING PHYSICIAN: OTIS NASH MD DATE OF SERVICE: 02/22/19 Discharge Plan Patient Name: ANTONINO ALMARAZ Facility: [facility]:[place] : 1960 Planned Disposition: Home Anticipated Discharge Date: Discharge Date: Expected LOS: Initial Reviewer: [email or web address] Initial Review Date: 02/22/2019 Generated: 02/22/19 1:12 pm Comments DCP- Discharge Planning Updated by [email or web address]: Kell Britton on 02/22/19 11:[address] Patient Name: ANTONINO ALMARAZ Admission Status: ER Accout number: [id number] Admission Date: 02-18-2019 : 1960 Admission Diagnosis:PNEUMONIA, UNSPECIFIED ORGANISM Attending: OTIS NASH Current LOS: 4 Anticipated DC Date: Planned Disposition: Home Primary Insurance: MEDICARE A & B Discharge Planning Comments: CM met with patient to complete initial dc planning assessment. CM educated patient on the CM role and verbal consent given by patient to complete assessment. Patient lives at home with her fianc?e (Fito Parrish). At discharge patient plans to return and feels this is a safe discharge. States he will pick her up when discharged. CM discussed availability of home health, rehab services, and medical equipment. Patient denied known discharge needs at this time. States she is independent with all ADL's. Declines home health offered. CM will continue to follow and will assist as needed with dc plans/needs. Automated Manufacturing Instructor: Kell Britton DCPIA - Discharge Planning Initial Assessment Updated by [email or web address]: Kell Britton on 02/22/19 12:09 pm * Is the patient Alert and Oriented? Yes * How many steps to enter\exit or inside your home? 0/0 * PCP Dr. Chairez * Pharmacy [facility] [address] * Preadmission Environment Home with Family * ADLs Independent * Equipment Nebulizer Other Oxygen * Other Equipment Portable oxygen * List name and contact numbers for known caregivers / representatives who currently or will assist patient after discharge: Fito castro?e - [phone] Kanchan Martin - DTR - [phone] * Verbal permission to speak to the caregivers and representatives has been obtained from the patient. Yes * Community resources currently utilized None * Please name any agencies selected above. [facility] as DME * Additional services required to return to the preadmission environment? No * Can the patient safely return to the preadmission environment? Yes * Has this patient been hospitalized within the prior 30 days at any hospital? No Patient Name: ANTONINO ALMARAZ Page [phone] at 1213 All edits/amendments must be made on the electronic document DICTATION DATE: 02/22/19 121 AIRCRAFT SHIPPING CHECKER: JIM 02/22/191211 RPT#: [id number] DC DATE: STATUS: ADM IN [facility] [address] [place] [address] END OF REPORT
--- NOTE | 2019-02-22 13:38 | NUR ---
NUTRITION F/U PT TOLERATING REG DIET WITH GOOD INTAKE RECENT MEALS. WILL CONTINUE TO PROVIDE DIET, HONOR FOOD PREFERENCES. RD FOLLOWING
[2019-02-22 14:30] VITALS: BP 151/86
[2019-02-22 16:47] VITALS: BP 168/94
--- NOTE | 2019-02-22 18:45 | NUR ---
PATIENT IN BED WITH IV INTACT. NO COMPLAINTS OR SIGNS OF DISTRESS. CALL LIGHT WITHIN REACH.
--- NOTE | 2019-02-22 19:45 | NUR ---
PT SITTING UP IN BED WITHOUT DISTRESS. ALERT AND ORIENTED. STATES PAIN 10/10 AND IS ALWAYS A 10. WILL GIVE PAIN MEDS ORDERED. NO OTHER NEEDS AT THIS TIME. CL IN REACH, WILL CTM
[2019-02-22 20:00] VITALS: BP 161/88
[2019-02-22 22:54] LABS: MAGNESIUM - SERUM 1.4 mg/dL (1.8-2.4)
[2019-02-22 22:58] LABS: POTASSIUM - SERUM 3.6 mmol/L (3.5-5.1)
[2019-02-23] VITALS: BP 150/76
[2019-02-23 04:00] VITALS: BP 176/100
[2019-02-23 06:55] LABS: CALC OSMOLALITY 276 mosm/kg (275-300); CALCIUM 8.5 mg/dL (8.5-10.1); CARBON DIOXIDE 32.1 mmol/L (21.0-32.0); CHLORIDE - SERUM 99 mmol/L (98-107); CREATININE - SERUM 0.6 mg/dL (0.6-1.3); GLUCOSE 152 mg/dL (74-106); POTASSIUM - SERUM 3.7 mmol/L (3.5-5.1); SODIUM 137 mmol/L (136-145); eGFR NON AFRICAN AMERICAN > 90 mL/min (90-120)
[2019-02-23 06:59] LABS: UREA NITROGEN 13 mg/dL (7-18)
[2019-02-23 07:47] LABS: BASOPHILS 0.1 % (0-2); EOSINOPHILS 0 % (0-7); HEMATOCRIT 35.3 % (36.0-48.0); HEMOGLOBIN 12.3 g/dL (12-16); IMMATURE GRANULOCYTES 2.2 % (0-5); LYMPHOCYTES 4.5 % (15-50); MCH 34.2 pg (26.0-34.0); MCHC 34.8 g/dL (31.0-37.0); MCV 98.1 fL (80.0-100.0); MEAN PLATELET VOLUME 9.7 fL (7.4-10.4); NEUTROPHILS 87.2 % (40-80); PLATELET COUNT 225 10x3/uL (130-400); RDW 15.6 % (11.5-14.5); WBC 13.2 10x3/uL (4.8-10.8)
[2019-02-23 08:39] VITALS: BP 172/105
[2019-02-23 13:28] VITALS: BP 147/100
[2019-02-23 18:03] VITALS: BP 162/96
--- NOTE | 2019-02-23 19:45 | NUR ---
PT LYING IN BED RESTING, NO SIGNS OF DISTRESS. CL IN REACH, WILL CTM
[2019-02-23 20:00] VITALS: BP 198/102
--- NOTE | 2019-02-23 20:30 | NUR ---
SPOKE WITH PT BOYFRIEND OVER PHONE, UPDATE GIVEN.
--- NOTE | 2019-02-24 03:00 | NUR ---
PT PULLED RIGHT FA IV OUT WITH CATHETER TIP INTACT. RESITED 20G IV TO LEFT WRIST X1 ATTEMPT.
[2019-02-24 03:15] VITALS: BP 182/110
[2019-02-24 04:00] VITALS: BP 192/102
[2019-02-24 05:56] LABS: CALC OSMOLALITY 282 mosm/kg (275-300); CALCIUM 8.6 mg/dL (8.5-10.1); CHLORIDE - SERUM 100 mmol/L (98-107); CREATININE - SERUM 0.6 mg/dL (0.6-1.3); GLUCOSE 174 mg/dL (74-106); POTASSIUM - SERUM 3.8 mmol/L (3.5-5.1); SODIUM 139 mmol/L (136-145); UREA NITROGEN 15 mg/dL (7-18); eGFR NON AFRICAN AMERICAN > 90 mL/min (90-120)
[2019-02-24 06:43] LABS: BASOPHILS 0.2 % (0-2); EOSINOPHILS 0 % (0-7); HEMATOCRIT 36.1 % (36.0-48.0); HEMOGLOBIN 12.4 g/dL (12-16); IMMATURE GRANULOCYTES 5.4 % (0-5); LYMPHOCYTES 3.5 % (15-50); MCH 34.3 pg (26.0-34.0); MCHC 34.3 g/dL (31.0-37.0); MCV 99.7 fL (80.0-100.0); MEAN PLATELET VOLUME 10.3 fL (7.4-10.4); MONOCYTES 5.8 % (2-11); NEUTROPHILS 85.1 % (40-80); PLATELET COUNT 203 10x3/uL (130-400); RBC 3.62 10x6/uL (4.00-5.40); RDW 15.8 % (11.5-14.5)
[2019-02-24 09:29] VITALS: BP 151/96
[2019-02-24 13:35] VITALS: BP 177/96
--- NOTE | 2019-02-24 17:12 | NUR ---
PT RESTING IN BED. NO SIGNS OF DISTRESS. IV TO RIGHT HAND PATENT NO REDNESS OR TENDERNESS. COMPLAINS OF PAIN.MEDICATION GIVEN. DENIES ANY FUTHER NEED AT THIS TIME. CALL LIGHT IN REACH. BED LOW POSITION. NO FAMILY AT BEDSIDE.
[2019-02-24 18:07] VITALS: BP 149/79
--- NOTE | 2019-02-24 18:33 | NUR ---
I have reviewed this patient and I concur with the Shift Assessment completed by the Licensed Practical Nurse today this shift.
[2019-02-24 20:00] VITALS: BP 175/101
[2019-02-25] VITALS: BP 156/93
--- NOTE | 2019-02-25 01:33 | NUR ---
RESTING SITTING UP IN BED IV INTACT CALL LIGHT AND WATER IN REACH, NO NEEDS NOTED OR STATED.
[2019-02-25 04:00] VITALS: BP 147/85; BP 178/94
[2019-02-25 09:39] VITALS: BP 179/94
--- NOTE | 2019-02-25 10:17 | NUR ---
Rehab Prescreening Consult recieved and the chart has been reviewed. She has a new finding on the MRI Humerus and needs to follow up with ortho oncology at [facility]. Dr Pedro's VERIFICATION SPECIALIST Brayan documented he will discuss treatment options with Dr Pedro later today. She is ambulating 250 ft with PT per notes. Rehab will follow to see what treatment plans are indicated as chemo and further testing is not an option while on the rehab unit. Jamilah Fields RN Clinical Liaison, Rehab
[2019-02-25 13:32] VITALS: BP 154/85
--- NOTE | 2019-02-25 14:55 | NUR ---
Nutrition Follow Up: Chart reviewed Diet: Regular PO Intake: 64% meal avg BM: 02/21/19 Labs reviewed Meds noted including Solu Medrol Rec continue current diet. RD following.
[2019-02-25 17:07] VITALS: BP 177/103
--- NOTE | 2019-02-25 17:48 | NUR ---
PIV INFILTRATED. REMOVED, TIP INTACT.
--- NOTE | 2019-02-25 18:37 | NUR ---
I have reviewed this patient and I concur with the Shift Assessment completed by the Licensed Practical Nurse today this shift.
--- NOTE | 2019-02-25 19:00 | NUR ---
PT ALERT AND ORIENTED WITH TIMES OF CONFUSION. PT HAS RIGHT FOREARM IV THAT IS CURRENTLY INFUSING NS. PT COMPLAINS OF GENERALIZED BODY PAINS WITH MAIN SOURCE RIGHT SHOULDER. PT WEARS 2L PRN BUT CURRENT SATURATION 96% ON RA. PT USES WALKER TO AMBULATE TO BATHROOM. DENIES FURTHER CARE AT THIS TIME. HAS CALL LIGHT IN REACH. CPOC.
[2019-02-25 19:58] VITALS: BP 132/45; BP 157/99
[2019-02-26] VITALS: BP 169/99
--- NOTE | 2019-02-26 02:58 | NUR ---
I have reviewed this patient and I concur with the Shift Assessment completed by the Licensed Practical Nurse today this shift.
[2019-02-26 04:00] VITALS: BP 157/95
--- NOTE | 2019-02-26 05:19 | NUR ---
PATIENT REQUESTING PO PAIN MEDICINE. RATES PAIN 10/10
[2019-02-26 08:30] VITALS: BP 152/97
[2019-02-26 12:16] VITALS: BP 135/87
--- NOTE | 2019-02-26 14:34 | NUR ---
I have reviewed this patient and I concur with the Shift Assessment completed by the Licensed Practical Nurse today this shift.
--- NOTE | 2019-02-26 14:41 | NUR ---
PATIENT SLEEPING COMFORTABLY. NO SIGNS OF DISTRESS. DID NOT DISTURB.
[2019-02-26 16:55] VITALS: BP 153/93
--- NOTE | 2019-02-26 19:30 | NUR ---
ALERT AND ORIENTED. PT HAS SEVERE ANXIETY ABOUT BONE SCAN RESULTS. LEFT FORE ARM IV THAT IS INFUSING NS @ 125. DENIES FURTHER NEEDS AT THIS TIME. CALL LIGHT IN REACH OF PATIENT.
[2019-02-26 20:00] VITALS: BP 145/78
[2019-02-27] VITALS: BP 140/70
--- NOTE | 2019-02-27 03:14 | NUR ---
I have reviewed this patient and I concur with the Shift Assessment completed by the Licensed Practical Nurse today this shift.
[2019-02-27 04:00] VITALS: BP 144/83
[2019-02-27 07:06] LABS: BASOPHILS 0.1 % (0-2); EOSINOPHILS 0 % (0-7); HEMATOCRIT 33.6 % (36.0-48.0); HEMOGLOBIN 11.6 g/dL (12-16); IMMATURE GRANULOCYTES 6.4 % (0-5); LYMPHOCYTES 5.1 % (15-50); MCH 34.5 pg (26.0-34.0); MCHC 34.5 g/dL (31.0-37.0); MEAN PLATELET VOLUME 10.2 fL (7.4-10.4); NEUTROPHILS 83.4 % (40-80); PLATELET COUNT 201 10x3/uL (130-400); RBC 3.36 10x6/uL (4.00-5.40); RDW 16.5 % (11.5-14.5); WBC 13.4 10x3/uL (4.8-10.8)
[2019-02-27 07:55] LABS: CALC OSMOLALITY 283 mosm/kg (275-300); CALCIUM 8.1 mg/dL (8.5-10.1); CARBON DIOXIDE 27.1 mmol/L (21.0-32.0); CHLORIDE - SERUM 100 mmol/L (98-107); CREATININE - SERUM 0.7 mg/dL (0.6-1.3); POTASSIUM - SERUM 3.4 mmol/L (3.5-5.1); SODIUM 138 mmol/L (136-145); UREA NITROGEN 14 mg/dL (7-18); eGFR NON AFRICAN AMERICAN > 90 mL/min (90-120)
[2019-02-27 07:56] LABS: GLUCOSE 226 mg/dL (74-106)
--- NOTE | 2019-02-27 07:58 | NUR ---
AAOX4. ON ROOM AIR, IV TO LEFT FOREARM, PATENT, INFUSING NS AT 125ML/HR. REQUESTED PAIN MEDICATION FOR PAIN LEVEL 10/10, GENERALIZED PAIN. ADMINISTERED PRN DILAUDID ORDERED. AMBULATORY. NON-SLIP SOCKS PRESENT, DENIES ANY OTHER NEEDS OR DISCOMFORTS, BED LOWERED AND LOCKED, CALL LIGHT WITHIN REACH.
[2019-02-27 09:25] VITALS: BP 184/103
[2019-02-27 13:00] VITALS: BP 134/88
[2019-02-27 18:20] VITALS: BP 162/96
[2019-02-27 20:00] VITALS: BP 179/100
--- NOTE | 2019-02-27 20:00 | NUR ---
ALERT AND ORIENTED WITH TIMES OF CONFUSION. RIGHT FOREARM IV TO THE POSTERIOR REGION WITHOUT REDNESS OR TENDERNESS. DENIES NEEDS AT THIS TIME. SIGNIFICANT OTHER IN ROOM WITH PATIENT
[2019-02-28] VITALS: BP 165/98
[2019-02-28 04:00] VITALS: BP 169/81
--- NOTE | 2019-02-28 04:50 | NUR ---
I have reviewed this patient and I concur with the Shift Assessment completed by the Licensed Practical Nurse today this shift.
[2019-02-28 07:06] LABS: HEMATOCRIT 35.3 % (36.0-48.0); HEMOGLOBIN 12.2 g/dL (12-16); MCH 34.3 pg (26.0-34.0); MCHC 34.6 g/dL (31.0-37.0); MCV 99.2 fL (80.0-100.0); MEAN PLATELET VOLUME 10.6 fL (7.4-10.4); PLATELET COUNT 214 10x3/uL (130-400); RBC 3.56 10x6/uL (4.00-5.40); RDW 16.2 % (11.5-14.5); WBC 12.2 10x3/uL (4.8-10.8)
[2019-02-28] MEDS ORDERED: DIFLUCAN100 MG PO (07:07)
[2019-02-28] MEDS ORDERED: ROCEPHIN 1 GM/D51 G1 IV (07:07)
[2019-02-28] MEDS ORDERED: VALIUM5 MG PO (07:09)
[2019-02-28] MEDS ORDERED: PERCOCET 10-321 EAC1 PO (07:09)
[2019-02-28] MEDS ORDERED: STERAPRED DS 1210 MG PO (07:10)
[2019-02-28 07:28] LABS: CALCIUM 8.4 mg/dL (8.5-10.1); CHLORIDE - SERUM 96 mmol/L (98-107); CREATININE - SERUM 0.6 mg/dL (0.6-1.3); POTASSIUM - SERUM 3.6 mmol/L (3.5-5.1); SODIUM 133 mmol/L (136-145); eGFR NON AFRICAN AMERICAN > 90 mL/min (90-120)
[2019-02-28 07:32] LABS: CALC OSMOLALITY 265 mosm/kg (275-300); GLUCOSE 122 mg/dL (74-106); UREA NITROGEN 9 mg/dL (7-18)
--- NOTE | 2019-02-28 07:43 | NUR ---
ALERT AND ORIENTED X 3. LUNGS DIMINISHED BILATERALLY. HEART SOUNDS S1 AND S2 HEARD IN ALL FRANCIS. BOWEL SOUNDS ACTIVE X4. SKIN INTACT WITHOUT REDNESS. REQUESTS AM MEDICATIONS NOW. DENIES FURTHER NEEDS. BED LOW. CALL MYERS AND PERSONAL ITEMS IN REACH. WILL CONTINUE TO MONITOR.
[2019-02-28 08:45] VITALS: BP 186/106
--- NOTE | 2019-02-28 09:05 | MORECARE ---
CASE MANAGEMENT DISCHARGE SUMMARY PATIENT: ANTONINO ALMARAZ UNIT: [id number] ADM DATE: 02/18/19 AGE: 58 : 64 SEX: F ROOM/BED: D.2239 AUTHOR: KRISHNA ROCHA PHYSICIAN: REFERRING PHYSICIAN: OTIS NASH MD DATE OF SERVICE: 02/28/19 Discharge Plan Patient Name: ANTONINO ALMARAZ Facility: [facility]:[place] : 1960 Planned Disposition: Home Anticipated Discharge Date: Discharge Date: Expected LOS: Initial Reviewer: [email or web address] Initial Review Date: 02/22/2019 Generated: 02/28/19 10:04 am Comments DCP- Discharge Planning Updated by [email or web address]: Kell Britton on 02/28/19 8:[address] Received discharge orders to inpatient rehab. I called and spoke to Corine and they are going to review her chart and see if she is still meeting criteria. CM will continue to follow and assist with discharge planning/needs. DCP- Discharge Planning Updated by [email or web address]: Kell Britton on 02/22/19 11:[address] Patient Name: ANTONINO ALMARAZ Admission Status: ER Accout number: [id number] Admission Date: 02-18-2019 : 1960 Admission Diagnosis:PNEUMONIA, UNSPECIFIED ORGANISM Attending: OTIS NASH Current LOS: 4 Anticipated DC Date: Planned Disposition: Home Primary Insurance: MEDICARE A & B Discharge Planning Comments: CM met with patient to complete initial dc planning assessment. CM educated patient on the CM role and verbal consent given by patient to complete assessment. Patient lives at home with her fiflorian?e (Fito Parrish). At discharge patient plans to return and feels this is a safe discharge. States he will pick her up when discharged. CM discussed availability of home health, rehab services, and medical equipment. Patient denied known discharge needs at this time. States she is independent with all ADL's. Declines home health offered. CM will continue to follow and will assist as needed with dc plans/needs. Network Support: Kell Britton DCPIA - Discharge Planning Initial Assessment Updated by [id number]: Kell Britton on 02/22/19 12:09 pm * Is the patient Alert and Oriented? Yes * How many steps to enter\exit or inside your home? 0/0 * PCP Dr. Chairez * [facility] [address] * Preadmission Environment Home with Family * ADLs Independent * Equipment Nebulizer Other Oxygen * Other Equipment Portable oxygen * List name and contact numbers for known caregivers / representatives who currently or will assist patient after discharge: Fito Parrish - matthew?e - [phone] Kanchan Martin - R - [phone] * Verbal permission to speak to the caregivers and representatives has been obtained from the patient. Yes * Community resources currently utilized None * Please name any agencies selected above. [facility] as DME * Additional services required to return to the preadmission environment? No * Can the patient safely return to the preadmission environment? Yes * Has this patient been hospitalized within the prior 30 days at any hospital? 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
[2019-02-28 09:16] LABS: BASOPHILS 1 % (0-2); LYMPHOCYTES 6 % (15-50); MONOCYTES 8 % (2-11); NEUTROPHILS 82 % (40-80); PLATELET ESTIMATE NORMAL
--- NOTE | 2019-02-28 10:51 | NUR ---
RESTING IN BED. DENIES NEEDS.
--- NOTE | 2019-02-28 12:54 | NUR ---
DISCHARGE EDUCATION PROVIDED BOTH WRITTEN AND VERBAL. DENIES FURTHER QUESTIONS. DAUGHTER AT BEDSIDE DENIES FURTHER QUESTIONS. WILL TRANSFER TO REHAB WHEN BED AVAILABLE.
--- NOTE | 2019-02-28 16:20 | NUR ---
REPORT CALLED TO RN IN REHAB MAREN JORDAN. NO FURTHER QUESTIONS FROM RN.
--- NOTE | 2019-02-28 16:35 | NUR ---
PATIENT TAKEN TO REHAB WITH ALL BELONGINGS.
--- NOTE | 2019-03-01 09:45 | MORECARE ---
CASE MANAGEMENT DISCHARGE SUMMARY PATIENT: ANTONINO ALMARAZ UNIT: [id number] ADM DATE: 02/18/19 AGE: 58 : 64 SEX: F ROOM/BED: D.2239 AUTHOR: KRISHNA ROCHA PHYSICIAN: REFERRING PHYSICIAN: OTIS NASH MD DATE OF SERVICE: 03/01/19 Discharge Plan Patient Name: ANTONINO ALMARAZ Facility: [facility]:[place] : 1960 Planned Disposition: Home Anticipated Discharge Date: Discharge Date: 02/28/2019 Expected LOS: 0 Initial Reviewer: [email or web address] Initial Review Date: 02/22/2019 Generated: 03/01/19 10:45 am Comments DCP- Discharge Planning Updated by [email or web address]: Kell Britton on 02/28/19 8:[address] Received discharge orders to inpatient rehab. I called and spoke to Corine and they are going to review her chart and see if she is still meeting criteria. CM will continue to follow and assist with discharge planning/needs. DCP- Discharge Planning Updated by [id number]: Kell Britton on 02/22/19 11:[address] Patient Name: ANTONINO ALMARAZ Admission Status: ER Accout number: [id number] Admission Date: 02-18-2019 : 1960 Admission Diagnosis:PNEUMONIA, UNSPECIFIED ORGANISM Attending: OTIS NASH Current LOS: 4 Anticipated DC Date: Planned Disposition: Home Primary Insurance: MEDICARE A & B Discharge Planning Comments: CM met with patient to complete initial dc planning assessment. CM educated patient on the CM role and verbal consent given by patient to complete assessment. Patient lives at home with her fiflorian?e (Fito Parrish). At discharge patient plans to return and feels this is a safe discharge. States he will pick her up when discharged. CM discussed availability of home health, rehab services, and medical equipment. Patient denied known discharge needs at this time. States she is independent with all ADL's. Declines home health offered. CM will continue to follow and will assist as needed with dc plans/needs. Medical Management Specialist: Kell Britton DCPIA - Discharge Planning Initial Assessment Updated by [email or web address]: Kell Britton on 02/22/19 12:09 pm * Is the patient Alert and Oriented? Yes * How many steps to enter\exit or inside your home? 0/0 * PCP Dr. Chairez * [facility]acy [facility] [address] * Preadmission Environment Home with Family * ADLs Independent * Equipment Nebulizer Other Oxygen * Other Equipment Portable oxygen * List name and contact numbers for known caregivers / representatives who currently or will assist patient after discharge: Fito Parrish - matthew?e - [phone] Kanchan Martin - R - [phone] * Verbal permission to speak to the caregivers and representatives has been obtained from the patient. Yes * Community resources currently utilized None * Please name any agencies selected above. [facility] as DME * Additional services required to return to the preadmission environment? No * Can the patient safely return to the preadmission environment? Yes * Has this patient been hospitalized within the prior 30 days at any hospital? No Coverage Notice Reviewer: [id number] Shorty Britton Notice Issued Date-Time: 02/28/2019 8:51 Notice Type: IM Discharge Notice Notice Delivered To: Patient Relationship to Patient: Tax Expert Name: Delivery Method: HAND - Hand Delivered Cara Days: Prior Verbal Notification: Recipient Understood Notice: Yes Recipient Signature: Yes Med Rec Note Co-signed by Attending: Coverage Notice Comment: IMM explained, signed, given, copy placed in MR Last DP export: 02/28/19 8:04 a Patient Name: ANTONINO ALMARAZ Page [id number] at 0945 All edits/amendments must be made on the electronic document DICTATION DATE: 03/01/19943 PRODUCT DEVELOPMENT CONSULTANT: JIM 03/01/19943 RPT#: [id number] DC DATE:02/28/19 STATUS: DIS IN [facility] [address] [facility] [place] [address] END OF REPORT
== END 2019-02-28 16:39 | DRG 871 ==
LOC: D.ER 13:48 → D.MS 17:39
PROVIDERS: Family Medicine; ADMIT Family Medicine; ATTEND Family Medicine
DX: A41.9 Sepsis, unspecified organism (principal); J18.9 Pneumonia, unspecified organism; N39.0 Urinary tract infection, site not specified; C34.90 Malignant neoplasm of unspecified part of unspecified bronchus or lung; C79.31 Secondary malignant neoplasm of brain

== ENCOUNTER 2019-02-28 17:18 | Inpatient (IN) | payer MEDICARE ==
[~2019-02-28] VITALS: Ht 149.9 cm; Wt 64.0 kg
[~2019-02-28 17:18] MED LIST changes: +DIFLUCAN100 MG PO; +PERCOCET 10-321 EAC1 PO; +ROCEPHIN 1 GM/D51 G1 IV; +STERAPRED DS 1210 MG PO
[2019-02-28 18:38] VITALS: BP 146/82; BMI 28.5
--- NOTE | 2019-02-28 19:33 | NUR ---
AWAKE AND ALERT. SITTING IN BED. RESPIRATIONS UNLABORED. RESTLESS AND FIGETEDY. TAKING THINGS IN AND OUT OF BEDSIDE TABLE OVER AND OVER. ORIENTED TO ROOM AND CALL LIGHT USE.
[2019-02-28 20:51] VITALS: BP 159/88
--- NOTE | 2019-03-01 00:02 | NUR ---
PT AWAKE, ADM PAIN MED PER MD ORDERS, SEE EMAR, PT DENIES FURTHER NEEDS
--- NOTE | 2019-03-01 05:12 | NUR ---
QUIET HOURS. SLEPT IN SHORT INTERVALS. RESPIRATIONS UNLABORED. NO DISTRESS NOTED. CALL LIGHT IN REACH.
[2019-03-01 06:49] LABS: BASOPHILS 0.2 % (0-2); EOSINOPHILS 0 % (0-7); HEMATOCRIT 34.7 % (36.0-48.0); HEMOGLOBIN 12.2 g/dL (12-16); IMMATURE GRANULOCYTES 4.4 % (0-5); LYMPHOCYTES 9.6 % (15-50); MCH 34.6 pg (26.0-34.0); MCHC 35.2 g/dL (31.0-37.0); MCV 98.3 fL (80.0-100.0); MEAN PLATELET VOLUME 10.8 fL (7.4-10.4); MONOCYTES 10.7 % (2-11); NEUTROPHILS 75.1 % (40-80); RBC 3.53 10x6/uL (4.00-5.40); RDW 16.4 % (11.5-14.5)
[2019-03-01 06:59] LABS: PLATELET COUNT 112 10x3/uL (130-400); WBC 8.2 10x3/uL (4.8-10.8)
[2019-03-01 07:26] LABS: CALC OSMOLALITY 275 mosm/kg (275-300); CALCIUM 8.3 mg/dL (8.5-10.1); CARBON DIOXIDE 31.9 mmol/L (21.0-32.0); CHLORIDE - SERUM 97 mmol/L (98-107); CREATININE - SERUM 0.5 mg/dL (0.6-1.3); GLUCOSE 79 mg/dL (74-106); SODIUM 138 mmol/L (136-145); eGFR NON AFRICAN AMERICAN > 90 mL/min (90-120)
[2019-03-01 07:29] LABS: POTASSIUM - SERUM 3.8 mmol/L (3.5-5.1); UREA NITROGEN 14 mg/dL (7-18)
[2019-03-01 08:00] VITALS: BP 157/98
--- NOTE | 2019-03-01 08:02 | NUR ---
PT RESTING IN BED WITH EYES OPEN CALL LIGHT IN REACH NO PROBLEMS WILL MONITER
--- NOTE | 2019-03-01 14:15 | NUR ---
IN BED.CL IN REACH.
[2019-03-01 14:36] VITALS: Ht 149.9 cm; Wt 64.0 kg
--- NOTE | 2019-03-01 17:07 | RHP ---
PATIENT: ANTONINO ALMARAZ MEDICAL RECORD: [id number] ACCOUNT: [id number] LOCATION:[facility] : [birth year] ADMISSION DATE: 02/28/19 REHABILITATION HISTORY AND PHYSICAL EXAMINATION POST ADMISSION PHYSICIAN EXAMINATION DATE OF ADMISSION: 02/28/2019 ADMITTING DIAGNOSIS: Disuse myopathy. 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 She has had immobility, frequent falls, weakness, fatigue. She has got a history of pneumonia and immunocompromised. She is status post recent chemotherapy and radiation for lung cancer and brain mets. She presented to the ED via EMS with complaints of frequent falls, generalized weakness and feeling weak. She had recently completed chemo and radiation for lung cancer and brain mass within the last month. On exam, she appeared anxious and tearful. She states that she fears if treatment did not work and her brain cancer was advancing. She also had complaints of right-sided chest pain that radiated through to her shoulders. The patient was noted to have a right middle lobe pneumonia. They had a CT and PE protocol, which showed a pleural effusion, but no evidence of PE. Blood and urine cultures were obtained. She was started on IV antibiotics. First blood cultures were positive for E. coli. Final urine culture showed E. coli also. After seeing what she was sensitive to, Rocephin is actually appropriate. Ortho was consulted for right shoulder pain. Right humerus MRI showed lesions in the proximal humeral shafts concerning for metastatic disease. Nuclear med scan was done, which revealed no scintigraphic evidence of obvious metastatic disease. Hem/onc has been seeing her during her stay. They have cleared her to participate in therapy. She is to complete 2 weeks of IV Rocephin due to cultures. She has also been converted to IV Solu-Medrol to p.o. prednisone in a taper. Previously, she was independent with her ADLs and mobility. Currently, she is set up for mod assist for ADLs and mid to mod assist for mobility. She has had prolonged immobility, progressive generalized weakness. She has to be acute constantly to focus on her thoughts and lower extremity movements to maintain stability. She is on supplemental O2 and home oxygen. She is deconditioned. She has impaired mobility. She has high fall risk, self-care deficit. These are all barriers to her discharge home at this time. She wants to be able to regain her strength and hopefully return home after her inpatient stay here in the rehabilitation. COMORBIDITIES: In this patient include sepsis, UTI, right middle lobe pneumonia, small cell cancer, intractable pain, leukocytosis, anemia, pleural effusion, hypotension, hyperglycemia, generalized weakness, lethargy, immunocompromised, frequent falls, anxiety and depression. PAST MEDICAL HISTORY: Significant for emphysema, history of cancer and hypertension. She wears glasses. PAST SURGICAL HISTORY: Includes , appendectomy, hysterectomy, and tonsillectomy. She has had a reconstruction of her rectal area, exploratory lap. ALLERGIES: PENICILLIN AND MORPHINE. HISTORY AND PHYSICAL [id number] ANTONINO ALMARAZ CURRENT MEDICATIONS: Include Floranex daily, she is on Diflucan 100 mg daily, Celexa 40 mg daily, amlodipine 5 mg daily, Rocephin she is only on a total of 2 weeks of this. She is on a prednisone taper. She is on Valium 5 mg q.i.d., Soma 350 b.i.d., amitriptyline 50 mg at bedtime, Advair 2 puffs b.i.d., Brovana 15 mcg b.i.d., Imodium 2 mg as needed. She is on an electrolyte protocol at this time. She is on Compazine 10 mg every 6 hours p.r.n. nausea and vomiting, Percocet 10/325 one tab every 4 hours p.r.n., Zofran 8 mg every 8 hours p.r.n., Pepcid 20 mg b.i.d. and DuoNeb updrafts. HABITS: No current alcohol or tobacco use. FAMILY HISTORY: Noncontributory. SOCIAL HISTORY: The patient hopes to return back home and get back to her prior level of functioning. REVIEW OF SYSTEMS: GENERAL: Does complain of weakness and fatigue. HEENT: Denies cold, cough, or congestion. CARDIOVASCULAR: Denies chest pain. PHYSICAL EXAMINATION: VITAL SIGNS: Stable, afebrile. GENERALLY: A thin elderly female, in no acute distress upon exam. HEENT: Normocephalic and atraumatic. Mucosa moist. NECK: Supple. No lymphadenopathy. LUNGS: Clear at this time in upper srivastava. She does have decreased breath sounds in the bases. HEART: Regular rate and rhythm. ABDOMEN: Benign. EXTREMITIES: No clubbing, cyanosis or edema. NEUROLOGIC: She does have some slow mentation, but is pretty appropriate. LABORATORY DATA: Her white count is 8.2, H&H 12 and 34 and platelet count is noted to be 112. Her sodium is 138, potassium 3.8, BUN and creatinine of 14 and 0.5 and blood sugar is noted to be 79. ASSESSMENT: This is a 58-year-old female patient admitted to rehab with a working diagnosis of disuse myopathy. The patient has potential to make improvement. We instituted the following multidisciplinary therapies include, but not limited to physical, occupational, respiratory, speech, nutritional services, prosthetics and orthotics. Given her complex medical conditions and risks for more complications, rehabilitation services cannot be provided at a low level of care such as residential facility. PLAN: 1. Admit to [facility] for intensive inpatient therapy to include the following disciplines: A. Physical therapy to improve gait, all transfer skills and bed mobility to a modified independent level. B. Occupational therapy to a modified independent level. C. Case management to assist with discharge planning and placement options. D. Nutrition to assist with nutritional needs. E. Rehabilitation nursing to assist in monitoring the patient's underlying medical conditions and to assist with any type of bowel or bladder management. HISTORY AND PHYSICAL [id number] ANTONINO ALMARAZ 2. The patient's current medication and medical care will be continued. 3. The patient will be placed on standard fall precautions. 4. The patient's current medications will be adjusted. I am going to adjust her pain medicine, so she can get more immediate release oxycodone and I am going to see again in the a.m. TRANSINT:[id number] Voice Confirmation ID: [id number] DOCUMENT ID: [id number] JULIO CESAR notes whether there has been none or any medical/functional change since admission: - No change since prescreen. JULIO CESAR attests patient continues to be appropriate for IRF: - Continues to be appropriate. KAREN QUACH MD at 1707 CC: [id number] DICTATION DATE: 03/01/19 09 VALUE ANALYST: 03/01/19 1021 ADM IN [facility] [id number] [place] [address]
--- NOTE | 2019-03-01 18:38 | NUR ---
PT RESTING IN BED WITH EYES OPEN CALL LIGHT IN REACH NO PROBLEM WILL MONITER
[2019-03-01 19:00] VITALS: BP 136/79
--- NOTE | 2019-03-01 20:00 | NUR ---
PM ROUNDS MADE, PT WATCHING TV, INFORMED PT THAT I WILL BE BACK SHORTLY TO DO ASSESSMENT AND ADM 2100 MEDS, PT VERBALIZES UNDERSTANDING, DENIES NEEDS AT THIS TIME
--- NOTE | 2019-03-01 20:54 | NUR ---
ASSESSMENT PER FLOW SHEET, PT REPORTS FLATUS, BM TODAY AND VOIDING WITH NO DIFFICULTY, ADM 2100 MEDS PER MD ORDERS, SEE EMAR, PT UP TO BR VIA WALKER PER SELF, PT BACK TO BED, DENIES FURTHER NEEDS
--- NOTE | 2019-03-01 21:30 | NUR ---
PT RESTING WITH EYES CLOSED, RESP QUIET, NO DISTRESS NOTED, LEFT UNDISTURBED AT THIS TIME, BED IN LOW POSITION, SIDE RAILS X 2, CALL LIGHT IN REACH
--- NOTE | 2019-03-02 02:07 | NUR ---
PT AWAKE, UP IN ROOM, C/O LEFT SHOULDER PAIN, INFORMED PT THAT PAIN MED WASN'T DUE TILL 6AM, PT VERBALIZES UNDERSTANDING, DENIES NEEDS AT THIS TIME
--- NOTE | 2019-03-02 06:10 | NUR ---
PT AWAKE, C/O PAIN, ADM PAIN MED PER MD ORDERS, SEE EMAR, PT DENIES FURTHER NEEDS, BED IN LOW POSITION, SIDE RAILS X 2, CALL LIGHT IN REACH
[2019-03-02 07:26] LABS: BASOPHILS 0 % (0-2); EOSINOPHILS 0 % (0-7); HEMATOCRIT 34.2 % (36.0-48.0); HEMOGLOBIN 11.7 g/dL (12-16); IMMATURE GRANULOCYTES 1.8 % (0-5); LYMPHOCYTES 6.2 % (15-50); MCH 34.4 pg (26.0-34.0); MCHC 34.2 g/dL (31.0-37.0); MEAN PLATELET VOLUME 10.2 fL (7.4-10.4); MONOCYTES 7.3 % (2-11); NEUTROPHILS 84.7 % (40-80); RDW 16.7 % (11.5-14.5)
[2019-03-02 07:44] LABS: MCV 100.6 fL (80.0-100.0); PLATELET COUNT 222 10x3/uL (130-400); WBC 11.4 10x3/uL (4.8-10.8)
[2019-03-02 07:46] LABS: CALC OSMOLALITY 273 mosm/kg (275-300); CALCIUM 8.5 mg/dL (8.5-10.1); CARBON DIOXIDE 33.6 mmol/L (21.0-32.0); CHLORIDE - SERUM 96 mmol/L (98-107); CREATININE - SERUM 0.6 mg/dL (0.6-1.3); POTASSIUM - SERUM 3.3 mmol/L (3.5-5.1); SODIUM 137 mmol/L (136-145); UREA NITROGEN 11 mg/dL (7-18); eGFR NON AFRICAN AMERICAN > 90 mL/min (90-120)
[2019-03-02 07:50] LABS: GLUCOSE 122 mg/dL (74-106)
[2019-03-02 08:00] VITALS: BP 109/64
--- NOTE | 2019-03-02 08:50 | NUR ---
PT AM MEDS ADMINISTERD. PT DENIES NEEDS. WCTM.
--- NOTE | 2019-03-02 18:20 | NUR ---
PT OUTSIDE WITH FAMILY AT THIS TIME.
[2019-03-02 19:00] VITALS: BP 135/97
--- NOTE | 2019-03-02 19:07 | NUR ---
AWAKE AND ALERT. UP AD JORGE L IN ROOM. RESPIRATIONS UNLABORED. NO DISTRESS NOTED. CALL LIGHT IN REACH.
--- NOTE | 2019-03-03 01:38 | NUR ---
RESTING IN BED WITH RESPIRATIONS UNLABORED. NO DISTRESS NOTED. CALL LIGHT IN REACH.
--- NOTE | 2019-03-03 05:44 | NUR ---
RESTING IN BED. HAS SLEPT IN SHORT INTERVALS TONIGHT. WANDERED OUT INTO HALLWAY AND UP TO NURSES STATION X 2 THIS SHIFT. ASSITED BACK TO ROOM. NOW RESTING WITH NO ACUTE DISTRESS NOTED. CALL LIGHT IN REACH.
[2019-03-03 08:00] VITALS: BP 154/87
--- NOTE | 2019-03-03 17:28 | NUR ---
PT RESTING IN BED WITH EYES OPEN CALL LIGHT IN REACH WILL MONITER
[2019-03-03 19:15] VITALS: BP 153/81
--- NOTE | 2019-03-03 19:20 | NUR ---
PT SITTING UP IN BED. CALL LIGHT IN REACH. DENIES NEEDS AT THIS TIME. BED IN LOW. BED ALARM WAIVER ON CHART. RESP EVEN AND UNLABORED. ASSESSMENT COMPLETED AT THIS TIME. WILL CONTINUE TO MONITOR
--- NOTE | 2019-03-04 01:19 | NUR ---
PT RESTING QUIETLY. CALL LIGHT IN REACH. NO DISTRESS NOTED. WCTM
[2019-03-04 08:05] VITALS: BP 141/91
--- NOTE | 2019-03-04 08:15 | NUR ---
PT RESTING IN BED WITH EYES OPEN CALL LIGHT IN REACH WILL MONITER
--- NOTE | 2019-03-04 14:25 | NUR ---
PATIENT ADMITTED TO REHAB FROM ACUTE FLOOR. DR. YOO IS HER PCP. SHE HAS NO DME AT THIS TIME. DISCHARGE PLANS ARE FOR HERE TO RETURN HOME. WILL CONTINUE TO FOLLOW WITH PATIENT.
--- NOTE | 2019-03-04 17:59 | NUR ---
PT RESTING IN BED WITH EYES OPEN CALL LIGHT IN REACH WILL MONITER
--- NOTE | 2019-03-04 18:00 | NUR ---
PT ON SIDE OF BED EATING SUPPER TOLERATING WELL CALL LIGHT IN REACH NO PROBLEMS WILL MONITER
--- NOTE | 2019-03-04 20:02 | NUR ---
AWAKE AND ALERT. AMBULATING IN HALLWAYS. RESPIRATIONS UNLABORED. NO DISTRESS NOTED.
--- NOTE | 2019-03-05 05:07 | NUR ---
QUIET HOURS. AWAKE NOW AND AMBULATING IN HALLWAY. MEDICATED FOR C/O BACK PAIN. RESPIRATIONS UNLABORED. NO DISTRESS NOTED.
[2019-03-05 08:10] VITALS: BP 126/82
[2019-03-05] MEDS ORDERED: OXY IR30 MG PO (08:19)
[2019-03-05] MEDS ORDERED: OXYCONTIN10 MG PO (08:19)
--- NOTE | 2019-03-07 09:04 | NUR ---
PATIENT DISCHARGE HOME ON 03/05/19 WITH FAMILY. PATIENT DECLINES HOME HEALTH AND ANY DME NEEDS AT THIS TIME. DR. YOO 03/11/19 1110, DR. TANNER 03/14/19 2:00, PATIENT TO CALL DR. LENNY LONG TODAY FOR AN APPOINTMENT. PATIENT CHOICE FORM AND IMFM FORMS SIGNED, COPY GIVEN TO PATIENT AND FILED IN CHART. DISCHARGE INSTRUCTIONS WITH FIM DATA FAXED TO PCP AND REVIEWED WITH PATIENT.
--- NOTE | 2019-03-07 11:02 | NUR ---
PATIENT CALLED WITH CONFUSION REGARDING MEDICATIONS THAT SHE DID NOT MACHINE CERAMIC COATER FROM PHARMACY DUE TO WRONG PHARMACY CALLED. MAREN JORDAN RN CALLED VALIUM 5MG QID #120 WITH NO REFILLES AND SOMA 350MG #60 WITH NO REFILLS CALLED TO [facility]. SORAYA AT DR. TENA OFFICE NOTIFIED.
== END 2019-03-05 12:34 | disposition home or self-care (01) | DRG 91 ==
LOC: D.REHAB 17:18
PROVIDERS: ADMIT Emergency Medicine; ATTEND Emergency Medicine
DX: G72.89 Other specified myopathies (principal); A41.9 Sepsis, unspecified organism; J18.9 Pneumonia, unspecified organism; N39.0 Urinary tract infection, site not specified; C34.90 Malignant neoplasm of unspecified part of unspecified bronchus or lung; C79.31 Secondary malignant neoplasm of brain; J90 Pleural effusion, not elsewhere classified; F41.8 Other specified anxiety disorders; Z91.81 History of falling; D64.9 Anemia, unspecified; I95.9 Hypotension, unspecified; R73.9 Hyperglycemia, unspecified; R53.1 Weakness; J43.9 Emphysema, unspecified; R53.83 Other fatigue; E87.6 Hypokalemia

== ENCOUNTER 2019-03-09 04:03 | Inpatient (IN) | payer MEDICARE ==
[~2019-03-09] VITALS: Ht 149.9 cm; Wt 56.6 kg
[~2019-03-09 04:03] MED LIST changes: +OXY IR30 MG PO; +OXYCONTIN10 MG PO
[2019-03-09 04:54] LABS: APTT 24.2 SECONDS (22.8-39.4); INR 0.95 (0.85-1.17); PROTIME 12.2 SECONDS (11.6-15.0)
[2019-03-09 04:56] LABS: D-DIMER-QUANTITATIVE 1.02 ug/mLFEU (0.20-0.54)
[2019-03-09 05:01] LABS: ALKALINE PHOSPHATASE 70 U/L (46-116); ALT (SGPT) 35 U/L (10-68); BILIRUBIN - TOTAL 0.48 mg/dL (0.2-1.3); CALC OSMOLALITY 248 mosm/kg (275-300); CARBON DIOXIDE 27.1 mmol/L (21.0-32.0); CHLORIDE - SERUM 86 mmol/L (98-107); CREATININE - SERUM 0.7 mg/dL (0.6-1.3); POTASSIUM - SERUM 3.4 mmol/L (3.5-5.1); PROTEIN - SERUM 6.4 g/dL (6.4-8.2); SODIUM 122 mmol/L (136-145); UREA NITROGEN 10 mg/dL (7-18); eGFR NON AFRICAN AMERICAN > 90 mL/min (90-120)
[2019-03-09 05:06] LABS: BASOPHILS 0.1 % (0-2); EOSINOPHILS 0.6 % (0-7); HEMATOCRIT 32.4 % (36.0-48.0); HEMOGLOBIN 11.6 g/dL (12-16); IMMATURE GRANULOCYTES 1.2 % (0-5); LYMPHOCYTES 7.8 % (15-50); MCH 34.3 pg (26.0-34.0); MCHC 35.8 g/dL (31.0-37.0); MCV 95.9 fL (80.0-100.0); MEAN PLATELET VOLUME 9.6 fL (7.4-10.4); MONOCYTES 9.1 % (2-11); NEUTROPHILS 81.2 % (40-80); PLATELET COUNT 212 10x3/uL (130-400); RBC 3.38 10x6/uL (4.00-5.40); RDW 15.1 % (11.5-14.5); WBC 11.1 10x3/uL (4.8-10.8)
[2019-03-09 05:12] LABS: GLUCOSE 170 mg/dL (74-106)
[2019-03-09 05:21] LABS: CKMB 2.9 U/L (0.0-3.6); CREATINE KINASE 51 UL (21-215); MAGNESIUM - SERUM 1.5 mg/dL (1.8-2.4)
[2019-03-09 05:25] LABS: TROPONIN-I < 0.017 ng/mL (0.000-0.060)
--- NOTE | 2019-03-09 07:07 | NUR ---
REPORT GIVEN TO JANETT TREVIZO.
[2019-03-09 09:09] VITALS: BP 106/73
--- NOTE | 2019-03-09 09:21 | NUR ---
TRANSFER FROM ER BY W/C. LUPILLOINTED TO ROOM. CALL LIGHT IN REACH. WILL CONT. PLAN OF CARE.
[2019-03-09 09:54] VITALS: BP 106/73; BMI 27.9
[2019-03-09 11:16] LABS: BASOPHILS 0 % (0-2); EOSINOPHILS 0.1 % (0-7); HEMATOCRIT 31.8 % (36.0-48.0); HEMOGLOBIN 11.5 g/dL (12-16); IMMATURE GRANULOCYTES 0.8 % (0-5); LYMPHOCYTES 4.4 % (15-50); MCH 34.7 pg (26.0-34.0); MCHC 36.2 g/dL (31.0-37.0); MCV 96.1 fL (80.0-100.0); MEAN PLATELET VOLUME 9.3 fL (7.4-10.4); MONOCYTES 9.4 % (2-11); NEUTROPHILS 85.3 % (40-80); PLATELET COUNT 175 10x3/uL (130-400); RBC 3.31 10x6/uL (4.00-5.40); RDW 14.9 % (11.5-14.5); WBC 9.1 10x3/uL (4.8-10.8)
[2019-03-09 11:40] VITALS: BP 106/72
[2019-03-09 11:45] LABS: ALBUMIN 3.2 g/dL (3.4-5.0); ALKALINE PHOSPHATASE 70 U/L (46-116); ALT (SGPT) 37 U/L (10-68); BILIRUBIN - TOTAL 0.52 mg/dL (0.2-1.3); CALC OSMOLALITY 253 mosm/kg (275-300); CALCIUM 8.2 mg/dL (8.5-10.1); CARBON DIOXIDE 29.9 mmol/L (21.0-32.0); CHLORIDE - SERUM 88 mmol/L (98-107); CKMB 3.5 U/L (0.0-3.6); CREATINE KINASE 58 UL (21-215); CREATININE - SERUM 0.8 mg/dL (0.6-1.3); GLUCOSE 159 mg/dL (74-106); MAGNESIUM - SERUM 1.6 mg/dL (1.8-2.4); POTASSIUM - SERUM 3.3 mmol/L (3.5-5.1); PROTEIN - SERUM 6.6 g/dL (6.4-8.2); SODIUM 125 mmol/L (136-145); TROPONIN-I < 0.017 ng/mL (0.000-0.060); UREA NITROGEN 9 mg/dL (7-18); eGFR NON AFRICAN AMERICAN 78 mL/min (90-120)
[2019-03-09 12:29] VITALS: BMI 27.8
--- NOTE | 2019-03-09 13:33 | NUR ---
UPON ENTERING THE ROOM, PT WAS QUIET, NOT MAKING ANY SOUND. ONCE I ENTERED THE ROOM PT BEGAN TO CRY AND HYPERVENTILATE IMMEDIATELY SAYING SHE WAS IN HORRIBLE PAIN, THAT SHE COULDNT BREATH, AND THAT SHE COULDNT STOP HURTING. REASSURED PT THAT SHE IS RECEIVING THE HIGHEST DOSE OF PAIN MEDICATION WE ARE ABLE TO GIVE. PT DID NOT START TO ACT THIS WAY UNTIL ENTERING THE ROOM. PT WAS RUNNING AROUND THE ROOM BUT STATING SHE COULDNT CATCH HER BREATH. INSTRUCTED PT TO LIE HIGH FOWLERS POSITION AND ABOUT BREATHING TECHNIQUES. PT IMMEDIATELY STOPPED CRYING I LEFT THE ROOM. WILL CTM.
[2019-03-09 18:36] VITALS: BP 118/65
[2019-03-09 20:00] VITALS: BP 123/77
--- NOTE | 2019-03-09 21:47 | NUR ---
PATIENT SITTING UP IN BED. PATIENT COMPLAINS OF 10/10 PAIN THAT IS GENERALIZED. PATIENT ROLLING AROUND ON BED STATING SHE NEEDS HER HOME MEDICATIONS SOMA AND AMITRIPTYLINE. PATIENT ADVISED THAT SHE DOES NOT HAVE ORDERS FOR THOSE MEDICATIONS. PATIENT ASKED IF SHE COULD GET DILAUDID FOR HER PAIN. I TOLD I WOULD BRING IT BACK TO HER. WHEN I BROUGHT BACK HER DILAUDID, PATIENT WAS LAYING ON HER SIDE STATING SHE COULD NOT ROLL OVER ONTO HER BACK BECAUSE SHE WAS HURTING TOO BAD. PATIENT THEN SAT UP AND STATED SHE COULD NOT CATCH HER BREATH AND PULLED OFF HER NASAL CANALA. PATIENT WAS ADVISED TO PUT THE NASAL CANALA BACK INTO HER NOSE AND TO BREATH IN HER NOSE AND OUT OF HER MOUTH. PATIENT RECEIVED DILAUDID AND LAYED QUIETLY IN BED. I CHECKED ON HER A LITTLE WHILE LATER TO SEE IF THE DILAUDID HELPED HER PAIN. PATIENT WAS LAYING IN BED WITH HER EYES CLOSED, CHEST RISING AND FALLING. NO DISTRESS WAS NOTED. AROUND 10 MINUTES LATER HER AIDE WENT IN HER ROOM TO CHECK ON HER. PATIENT ASKED AIDE FOR MORE PAIN MEDICATION AND HER HOME MEDICATIONS. PATIENT WAS INFORMED THAT IT WAS TOO EARLY FOR HER TO RECEIVE ANY MORE. PATIENT ASKED IF SHE WAS ABLE TO HAVE HER PAIN MEDICATIONS EVERY 2 HOURS. I TOLD HER THAT SHE COULD FOR BREAKTHROUGH PAIN. PATIENT REQUESTED TO HAVE THE PAIN MEDICATIONS EVERY TWO HOURS AND TO WAKE HER UP FOR IT. I EXPLAINED TO PATIENT THAT IT IS NOT A SCHEDULED MEDICATION AND THAT SHE WOULD HAVE TO ASKED FOR THE MEDICATION. PATIENT VERBALIZED UNDERSTANDING.
[2019-03-10 04:00] VITALS: BP 141/88
--- NOTE | 2019-03-10 04:03 | NUR ---
I have reviewed this patient and I concur with the Shift Assessment completed by the Licensed Practical Nurse today this shift.
[2019-03-10 06:35] LABS: BASOPHILS 0.1 % (0-2); EOSINOPHILS 0.4 % (0-7); HEMATOCRIT 33.7 % (36.0-48.0); HEMOGLOBIN 11.5 g/dL (12-16); IMMATURE GRANULOCYTES 1.2 % (0-5); LYMPHOCYTES 11.5 % (15-50); MCH 33.8 pg (26.0-34.0); MCHC 34.1 g/dL (31.0-37.0); MONOCYTES 12.7 % (2-11); NEUTROPHILS 74.1 % (40-80); PLATELET COUNT 175 10x3/uL (130-400); RDW 15.5 % (11.5-14.5)
[2019-03-10 06:54] LABS: MCV 99.1 fL (80.0-100.0); WBC 6.8 10x3/uL (4.8-10.8)
--- NOTE | 2019-03-10 07:00 | NUR ---
RECEIVED REPORT AND RESUMED PATIENT CARE. SHE IS SITTING UP IN HER BED. SHE VOICED MULTIPLE THINGS INCLUDING WANTING HER GOWN CHANGED TO HER SHIRT. CL IN REACH. SHE CALVIN ON AND OFF WHEN TALKING TO HER STATES THIS PAIN JUST COMES IN WAVES. SHE HAS BEEN MEDICATED ALREADY.
[2019-03-10 07:02] LABS: CALCIUM 7.9 mg/dL (8.5-10.1); CARBON DIOXIDE 30.8 mmol/L (21.0-32.0); CHLORIDE - SERUM 93 mmol/L (98-107); CREATININE - SERUM 0.6 mg/dL (0.6-1.3); SODIUM 129 mmol/L (136-145); UREA NITROGEN 8 mg/dL (7-18); eGFR NON AFRICAN AMERICAN > 90 mL/min (90-120)
[2019-03-10 07:11] LABS: CALC OSMOLALITY 256 mosm/kg (275-300); GLUCOSE 98 mg/dL (74-106)
[2019-03-10 07:12] LABS: POTASSIUM - SERUM 2.9 mmol/L (3.5-5.1)
[2019-03-10 08:10] VITALS: BP 141/66
--- NOTE | 2019-03-10 08:25 | NUR ---
DILAUDID INCREASED TO 4MG DUE TO NEW ORDER FROM DR YOO AFTER SPEAKING WITH HER. HE ALSO DISCUSSED HER DX AND TREATMENT PLAN WITH HER ABOUT POSSIBLE HOSPICE CARE. SHE IS TEARFUL ON AND OFF.
--- NOTE | 2019-03-10 09:21 | NUR ---
DILADID 2MG GIVEN IVP AT THIS TIME DUE TO C/O PAIN. SHE CONTINUES TO HAVE PAIN ON AND OFF. SHE IS ABLE TO VOICE NEEDS AND REQUESTS DIFFERENT THINGS TO EAT AND DRINK.
--- NOTE | 2019-03-10 09:21 | NUR ---
DR YOO HERE AND SPOKE WITH HER CONCERNING DX AND TREATMENT PLAN. INCREASED DILAUDID DOSE TO 4MG PO AND IT WAS GIVEN AT THIS TIME. SHE C/O PAIN AND RATES IT A 10.
[2019-03-10 11:37] VITALS: BP 132/62
--- NOTE | 2019-03-10 12:15 | NUR ---
DILAUDID 2MG GIVEN IVP AT THIS TIME DUE TO PAIN. ALSO REQUEST ZOFRAN DUE TO NAUSEA AND UNABLE TO EAT UNLESS HAS ZOFRAN. CL IN REACH RESP EVEN WITHOUT LABOR.
--- NOTE | 2019-03-10 13:37 | NUR ---
C/O PAIN. DILAUDID PILLS GIVEN PO PER ORDERS. O2 ON. HEPLOCK SITE IS CLEAR.
--- NOTE | 2019-03-10 14:30 | NUR ---
DAUGHTER IS HERE AND CAME TO THE DESK TO SAY SHE COULDN'T BREATHE. I ASSESSED HER AND BBS ARE UNCHANGED. O2 SAT IS 93-94% ON O2. SHE HAS SOME DROWSINESS BUT I EXPLAINED SHE HAS HAD MULTIPLE MEDICATIONS ON AND OFF TODAY. DAUGHTER STATED SHE HAD HER O2 OFF AND TANGLED UP WHEN SHE CAME IN. O2 WAS CHECKED AND IT IS WORKING. I DID SPEAK WITH RESPIRATORY IN THE HALLWAY TO LET HER KNOW OF SITUATION.
[2019-03-10 14:38] VITALS: BP 136/71
--- NOTE | 2019-03-10 14:52 | NUR ---
DILAUDID GIVEN AT THIS TIME FOR C/O PAIN. SHE IS ROCKING IN THE BED AND CRYING IN PAIN
--- NOTE | 2019-03-10 16:15 | MORECARE ---
CASE MANAGEMENT DISCHARGE SUMMARY PATIENT: ANTONINO ALMARAZ UNIT: [id number] ADM DATE: 03/09/19 AGE: 58 : 64 SEX: F ROOM/BED: D.2594 AUTHOR: KRISHNA ROCHA PHYSICIAN: REFERRING PHYSICIAN: SUSAN YOO MD DATE OF SERVICE: 03/10/19 Discharge Plan Patient Name: ANTONINO ALMARAZ Facility: [facility]:[place] : 1960 Planned Disposition: Hospice Home Anticipated Discharge Date: 03/11/19 Discharge Date: Expected LOS: 2 Initial Reviewer: [id number] Initial Review Date: 03/09/2019 Generated: 03/10/19 5:15 pm DCPIA - Discharge Planning Initial Assessment Updated by WENDY: Chidi Davila on 03/10/19 4:14 pm * Is the patient Alert and Oriented? Yes * How many steps to enter\exit or inside your home? * PCP DR. YOO * Pharmacy [facility] ON [facility] * Preadmission Environment Home with Family * ADLs Partial Dependent * Partial ADLs (Assistance needed) Bathing Medication Management Transfers * Equipment Oxygen Rolling Walker * Other Equipment ROLLATOR WALKER, HOME AND PORTABLE OXYGEN FROM UNKNOWN PROVIDER * List name and contact numbers for known caregivers / representatives who currently or will assist patient after discharge: ALIA LYONS DTR, * Verbal permission to speak to the caregivers and representatives has been obtained from the patient. Yes * Community resources currently utilized None * Please name any agencies selected above. NONE * Additional services required to return to the preadmission environment? Yes * Can the patient safely return to the preadmission environment? Yes * Has this patient been hospitalized within the prior 30 days at any hospital? Yes External Providers External Provider: [facility] Next Contact Date: 03/10/2019 Service Request Date: Service Type: Resolution: Reviewer: Comments: Coverage Notice Reviewer: [id number] Shorty Davila Notice Issued Date-Time: 03/10/2019 15:45 Notice Type: Patient Choice Letter Notice Delivered To: Family Member Relationship to Patient: Daughter Orientation & Mobility Specialist Name: ALIA LYONS Delivery Method: HAND - Hand Delivered Cara Days: Prior Verbal Notification: Recipient Understood Notice: Yes Recipient Signature: Yes Med Rec Note Co-signed by Attending: Coverage Notice Comment: [facility] Reviewer: [id number] Shorty Davila Notice Issued Date-Time: 03/10/2019 15:45 Notice Type: IM Discharge Notice Notice Delivered To: Family Member Relationship to Patient: Daughter Orientation & Mobility Specialist Name: ALIA LYONS Delivery Method: HAND - Hand Delivered Cara Days: Prior Verbal Notification: Recipient Understood Notice: Yes Recipient Signature: Yes Med Rec Note Co-signed by Attending: Coverage Notice Comment: Patient Name: ANTONINO ALMARAZ Page 16133 at 1615 All edits/amendments must be made on the electronic document DICTATION DATE: 03/10/191614 OPERATIONS CHIEF: JIM 03/10/191614 RPT#: [id number] DC DATE: STATUS: ADM IN [facility] [address] [place] [address] END OF REPORT
--- NOTE | 2019-03-10 16:27 | MORECARE ---
CASE MANAGEMENT DISCHARGE SUMMARY PATIENT: ANTONINO ALMARAZ UNIT: [id number] ADM DATE: 03/09/19 AGE: 58 : 64 SEX: F ROOM/BED: D.7796 AUTHOR: KRISHNA ROCHA PHYSICIAN: REFERRING PHYSICIAN: SUSAN YOO MD DATE OF SERVICE: 03/10/19 Discharge Plan Patient Name: ANTONINO ALMARAZ Facility: [facility]:[place] : 1960 Planned Disposition: Hospice Home Anticipated Discharge Date: 03/11/19 Discharge Date: Expected LOS: 2 Initial Reviewer: [id number] Initial Review Date: 03/09/2019 Generated: 03/10/19 5:27 pm Comments DCP- Discharge Planning Updated by [id number]: Chidi Davila on 03/10/19 3:[address] Patient Name: ANTONINO ALMARAZ Admission Status: ER Accout number: [id number] Admission Date: 03-09-2019 : 1960 Admission Diagnosis: Attending: SUSAN YOO Current LOS: 1 Anticipated DC Date: 03-11-2019 Planned Disposition: Hospice Home Primary Insurance: MEDICARE A & B PLANNED EXTERNAL PROVIDER: [facility] Discharge Planning Comments: CM MET WITH PT AND DAUGHTER IN ROOM TO DISCUSS DISCHARGE PLANNING AND NEEDS. ANTONINO ALMARAZ provided verbal consent to discuss current and ongoing needs with/in the presence of: DAUGHTER, PATIENCE. 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 CM EXPLAINED HOW TO FILL OUT FORM AND INFORMED THEM HOURS OF NOTARY AVAILABILITY AT HOSPITAL. PT REPORTS LIVING AT HOME DEPENDENTLY ON BOYFRIEND WHO ASSISTS WITH MEDICATION MANAGEMENT, BATHING AND GETTING PT UP OUT OF BED. PT HAS HOME AND PORTABLE OXGYEN AND ROLLATOR WALKER WITH NO MEDICAL EQUIPMENT PROVIDER PREFERENCE. PT HAS NO OUTSIDE SERVICES ASSISTING IN THE HOME. CM DISCUSSED AVAILABILITY OF HOME HEALTH, REHAB SERVICES AND MEDICAL EQUIPMENT. PT AND DAUGHTER WOULD LIKE TO TALK TO HOSPICE, HAVE ALREADY SELECTED HOSPICE COMPANY, [employer]. CHOICE SIGNED. PT REPORTS HER FAMILY WILL PICK HER UP FOR DISCHARGE HOME. IMPORTANT MESSAGE FROM MEDICARE PROVIDED AND EXPLAINED. CM CALLED [facility], NOTIFIED DOROTHY OF REFERRAL AT [phone], CM FAXED REFERRAL INFORMATION TO [facility] AT [phone]. [facility] TO MEET WITH PT AND DAUGHTER THIS AFTERNOON. CM WAITING HOSPICE ADMISSION DETERMINATION AND MEDICAL EQUIPMENT ARRANGEMENT FOR [facility]. Roping Machine Tender: Chidi Davila DCPIA - Discharge Planning Initial Assessment Updated by WENDY: Chidi Davila on 03/10/19 4:14 pm * Is the patient Alert and Oriented? Yes * How many steps to enter\exit or inside your home? * PCP DR. YOO * Pharmacy [facility] ON [facility] * Preadmission Environment Home with Family * ADLs Partial Dependent * Partial ADLs (Assistance needed) Bathing Medication Management Transfers * Equipment Oxygen Rolling Walker * Other Equipment ROLLATOR WALKER, HOME AND PORTABLE OXYGEN FROM UNKNOWN PROVIDER * List name and contact numbers for known caregivers / representatives who currently or will assist patient after discharge: ALIA LYONS DTR, * Verbal permission to speak to the caregivers and representatives has been obtained from the patient. Yes * Community resources currently utilized None * Please name any agencies selected above. NONE * Additional services required to return to the preadmission environment? Yes * Can the patient safely return to the preadmission environment? Yes * Has this patient been hospitalized within the prior 30 days at any hospital? Yes Coverage Notice Reviewer: [id number] Shorty Davila Notice Issued Date-Time: 03/10/2019 15:45 Notice Type: Patient Choice Letter Notice Delivered To: Family Member Relationship to Patient: Daughter Lining Scrubber Name: ALIA LYONS Delivery Method: HAND - Hand Delivered Cara Days: Prior Verbal Notification: Recipient Understood Notice: Yes Recipient Signature: Yes Med Rec Note Co-signed by Attending: Coverage Notice Comment: [facility] Reviewer: [id number] Davila Notice Issued Date-Time: 03/10/2019 15:45 Notice Type: IM Discharge Notice Notice Delivered To: Family Member Relationship to Patient: Daughter Lining Scrubber Name: ALIA LYONS Delivery Method: HAND - Hand Delivered Cara Days: Prior Verbal Notification: Recipient Understood Notice: Yes Recipient Signature: Yes Med Rec Note Co-signed by Attending: Coverage Notice Comment: Last DP export: 03/10/19 3:15 p Patient Name: ANTONINO ALMARAZ Page [phone] at 1627 All edits/amendments must be made on the electronic document DICTATION DATE: 03/10/191625 RECEIVING TANK OPERATOR: JIM 03/10/191625 RPT#: [id number] DC DATE: STATUS: ADM IN [facility] [address] [place] [address] END OF REPORT
--- NOTE | 2019-03-10 16:48 | NUR ---
RESTING WITH EASE AT THIS TIME. RESP EVEN WITHOUT LABOR
--- NOTE | 2019-03-10 17:03 | NUR ---
WOKE UP IN PAIN. DILAUDID GIVEN IVP AT THIS TIME. O2 SAT IS 94% ON O2. SHE IS HAVING SOME PERIODS OF CONFUSION BUT IS EASILY REORIENT.SHE IS DROWSY ON AND OFF BUT REFUSES TO REST. DAUGHTER AT BEDSIDE.
[2019-03-10 17:49] VITALS: Ht 149.9 cm; Wt 56.6 kg
--- NOTE | 2019-03-10 18:20 | NUR ---
RESTING WTIH EASE AT THIS TIME. DAUGHTER WENT OUTSIDE FOR A LITTLE BIT SINCE SHE IS ASLEEP.
--- NOTE | 2019-03-10 19:00 | NUR ---
[facility] NURSE IN ROOM TO EVALUATE FOR HOME HOSPICE.
[2019-03-10 20:00] VITALS: BP 136/71
--- NOTE | 2019-03-10 20:30 | NUR ---
PATIENT ASKED FOR ZOFRAN DUE TO NAUSEA AND VOMITING. WHEN FLUSHING IV BEFORE ZOFRAN WAS INJECTED IV INFILTRATED. IV WAS REMOVED WITH TIP INTACT. WILL PLACE A NEW IV.
--- NOTE | 2019-03-10 22:57 | NUR ---
22G PIV PLACED IN RIGHT FOREARM 2 ATTEMPTS. PT MOANING OUT IN PAIN, DAUGHTER AT BEDSIDE. NURSE ASSESSING PAIN AND TREATING ORDERED. WILL CPOC
[2019-03-11] VITALS: BP 133/72
--- NOTE | 2019-03-11 03:18 | NUR ---
PATIENT LAYING IN BED. EYES CLOSED, CHEST RISING AND FALLING. NO DISTRESS NOTED.
[2019-03-11 04:00] VITALS: BP 129/78
--- NOTE | 2019-03-11 07:05 | NUR ---
RECIEVED REPORT FROM [facility] AND CARE RESUMED. RESP EVEN WITHOUT LABOR. O2 ON. RESTING WITH EASE AT THIS TIME. CL IN REACH
--- NOTE | 2019-03-11 07:56 | NUR ---
SHE FIRST C/O OF PAIN AND WHILE GETTING MEDICATED FOR THAT SHE C/O NAUSEA SO SHE WAS MEDICATED FOR NAUSEA ALSO. ALERT AND DAUGHTER AT BEDSIDE. STATES HER PAIN IS MAINLY IN CHEST AND BACK.
[2019-03-11 08:18] VITALS: BP 132/77
[2019-03-11 09:20] LABS: BASOPHILS 0.1 % (0-2); EOSINOPHILS 0.7 % (0-7); HEMATOCRIT 34.7 % (36.0-48.0); IMMATURE GRANULOCYTES 0.7 % (0-5); LYMPHOCYTES 10.4 % (15-50); MCHC 34.6 g/dL (31.0-37.0); MCV 98.3 fL (80.0-100.0); MONOCYTES 9.6 % (2-11); NEUTROPHILS 78.5 % (40-80); PLATELET COUNT 163 10x3/uL (130-400); RBC 3.53 10x6/uL (4.00-5.40); RDW 15.4 % (11.5-14.5); WBC 7.2 10x3/uL (4.8-10.8)
[2019-03-11 09:23] LABS: CALC OSMOLALITY 258 mosm/kg (275-300); CALCIUM 8.8 mg/dL (8.5-10.1); CARBON DIOXIDE 30.3 mmol/L (21.0-32.0); CHLORIDE - SERUM 91 mmol/L (98-107); CREATININE - SERUM 0.6 mg/dL (0.6-1.3); GLUCOSE 135 mg/dL (74-106); POTASSIUM - SERUM 3.4 mmol/L (3.5-5.1); SODIUM 129 mmol/L (136-145); UREA NITROGEN 6 mg/dL (7-18); eGFR NON AFRICAN AMERICAN > 90 mL/min (90-120)
--- NOTE | 2019-03-11 09:35 | MORECARE ---
CASE MANAGEMENT DISCHARGE SUMMARY PATIENT: ANTONINO ALMARAZ UNIT: [id number] ADM DATE: 03/09/19 AGE: 58 : 64 SEX: F ROOM/BED: D.0270 AUTHOR: KRISHNA ROCHA PHYSICIAN: REFERRING PHYSICIAN: SUSAN YOO MD DATE OF SERVICE: 03/11/19 Discharge Plan Patient Name: ANTONINO ALMARAZ Facility: [facility]:[place] : 1960 Planned Disposition: Hospice Home Anticipated Discharge Date: 03/11/19 Discharge Date: Expected LOS: 2 Initial Reviewer: [id number] Initial Review Date: 03/09/2019 Generated: 03/11/19 10:34 am Comments DCP- Discharge Planning Updated by [id number]: Chidi Davila on 03/11/19 8:[address] Patient Name: ANTONINO ALMARAZ Encounter No: [id number] : 1960 Primary Insurance: MEDICARE A & B Anticipated DC Date: 03-11-2019 Planned Disposition: Hospice Home External Planned Provider: [facility] DCP follow-up note: CM RECEIVED CALL FROM [facility], , HOSPICE HAS EVALUATED PT LAST NIGHT, PT IS HOME HOSPICE APPROPRIATE AND HOSPICE WILL ADMIT PT AFTER HOSPITAL DISCHARGE AND ARRIVAL AT HOME. [facility] IS DELIVERING MEDICAL EQUIPMENT TO PT'S HOME TODAY. [facility] WILL CALL CM WHEN ALL EQUIPMENT IS DELIVERED TO HOME FOR PT'S DISCHARGE HOME AND ADMISSION TO [facility] AFTER ARRIVAL HOME TODAY. REGINE Mcmahon DCP- Discharge Planning Updated by [id number]: Chidi Davila on 03/10/19 3:[address] Patient Name: ANTONINO ALMARAZ Admission Status: ER Accout number: [id number] Admission Date: 03-09-2019 : 1960 Admission Diagnosis: Attending: SUSAN YOO Current LOS: 1 Anticipated DC Date: 03-11-2019 Planned Disposition: Hospice Home Primary Insurance: MEDICARE A & B PLANNED EXTERNAL PROVIDER: [facility] Discharge Planning Comments: CM MET WITH PT AND DAUGHTER IN ROOM TO DISCUSS DISCHARGE PLANNING AND NEEDS. ANTONINO ALMARAZ provided verbal consent to discuss current and ongoing needs with/in the presence of: DAUGHTER, PATIENCE. 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 CM EXPLAINED HOW TO FILL OUT FORM AND INFORMED THEM HOURS OF NOTARY AVAILABILITY AT HOSPITAL. PT REPORTS LIVING AT HOME DEPENDENTLY ON BOYFRIEND WHO ASSISTS WITH MEDICATION MANAGEMENT, BATHING AND GETTING PT UP OUT OF BED. PT HAS HOME AND PORTABLE OXGYEN AND ROLLATOR WALKER WITH NO MEDICAL EQUIPMENT PROVIDER PREFERENCE. PT HAS NO OUTSIDE SERVICES ASSISTING IN THE HOME. CM DISCUSSED AVAILABILITY OF HOME HEALTH, REHAB SERVICES AND MEDICAL EQUIPMENT. PT AND DAUGHTER WOULD LIKE TO TALK TO HOSPICE, HAVE ALREADY SELECTED HOSPICE COMPANY, [employer]. CHOICE SIGNED. PT REPORTS HER FAMILY WILL PICK HER UP FOR DISCHARGE HOME. IMPORTANT MESSAGE FROM MEDICARE PROVIDED AND EXPLAINED. CM CALLED [facility], NOTIFIED DOROTHY OF REFERRAL AT [phone], CM FAXED REFERRAL INFORMATION TO [facility] AT [phone]. [facility] TO MEET WITH PT AND DAUGHTER THIS AFTERNOON. CM WAITING HOSPICE ADMISSION DETERMINATION AND MEDICAL EQUIPMENT ARRANGEMENT FOR [facility]. Lithographic Retoucher Apprentice: Chidi Davila DCPIA - Discharge Planning Initial Assessment Updated by [id number]: Chidi Davila on 03/10/19 4:14 pm * Is the patient Alert and Oriented? Yes * How many steps to enter\exit or inside your home? * PCP DR. YOO * Pharmacy [facility] ON [facility] * Preadmission Environment Home with Family * ADLs Partial Dependent * Partial ADLs (Assistance needed) Bathing Medication Management Transfers * Equipment Oxygen Rolling Walker * Other Equipment ROLLATOR WALKER, HOME AND PORTABLE OXYGEN FROM UNKNOWN PROVIDER * List name and contact numbers for known caregivers / representatives who currently or will assist patient after discharge: ALIA LYONS DTR, * Verbal permission to speak to the caregivers and representatives has been obtained from the patient. Yes * Community resources currently utilized None * Please name any agencies selected above. NONE * Additional services required to return to the preadmission environment? Yes * Can the patient safely return to the preadmission environment? Yes * Has this patient been hospitalized within the prior 30 days at any hospital? Yes Coverage Notice Reviewer: [id number] - Chidi Davila Notice Issued Date-Time: 03/10/2019 15:45 Notice Type: Patient Choice Letter Notice Delivered To: Family Member Relationship to Patient: Daughter Load Dropper Name: ALIA BISWASSON Delivery Method: HAND - Hand Delivered Cara Days: Prior Verbal Notification: Recipient Understood Notice: Yes Recipient Signature: Yes Med Rec Note Co-signed by Attending: Coverage Notice Comment: [facility] Reviewer: [id number] Shorty Davila Notice Issued Date-Time: 03/10/2019 15:45 Notice Type: IM Discharge Notice Notice Delivered To: Family Member Relationship to Patient: Daughter Load Dropper Name: ALIA LYONS Delivery Method: HAND - Hand Delivered Cara Days: Prior Verbal Notification: Recipient Understood Notice: Yes Recipient Signature: Yes Med Rec Note Co-signed by Attending: Coverage Notice Comment: Last DP export: 03/10/19 3:27 p Patient Name: ANTONINO ALMARAZ Page 47733 at 0935 All edits/amendments must be made on the electronic document DICTATION DATE: 03/11/19933 WEIGHER AND MIXER: JIM 03/11/19933 RPT#: [id number] DC DATE: STATUS: ADM IN [facility] [address] [place] [address] END OF REPORT
--- NOTE | 2019-03-11 11:03 | NUR ---
C/O PAIN. GAVE HER DILAUDID PO AT THIS TIME. SHE IS EATING AND DRINKING GOOD. NAUSEA IS IMPROVED. O2 IS ON. DAUGHTER AND GRANDKIDS ARE AT BEDSIDE. CL IN REACH.
[2019-03-11 11:51] VITALS: BP 106/63
--- NOTE | 2019-03-11 12:03 | MORECARE ---
CASE MANAGEMENT DISCHARGE SUMMARY PATIENT: ANTONINO ALMARAZ UNIT: [id number] ADM DATE: 03/09/19 AGE: 58 : 64 SEX: F ROOM/BED: D.9508 AUTHOR: KRISHNA ROHCA PHYSICIAN: REFERRING PHYSICIAN: SUSAN YOO MD DATE OF SERVICE: 03/11/19 Discharge Plan Patient Name: ANTONINO ALMARAZ Facility: [facility]:[place] : 1960 Planned Disposition: Hospice Home Anticipated Discharge Date: 03/11/19 Discharge Date: Expected LOS: 2 Initial Reviewer: [id number] Initial Review Date: 03/09/2019 Generated: 03/11/19 1:03 pm Comments DCP- Discharge Planning Updated by [id number]: Maday Sanchez on 03/11/19 10:[address] CALLED AND SPOKE WITH DR YOO IN REGARDS TO DISCHARGE ORDERS. EXPLAINED THAT HOSPICE WAS DELIVERING THE EQUIPMENT TODAY AND WOULD ADMIT TONIGHT IF HE WAS READY FOR HER TO DISCHARGE. PER DR YOO THERE ARE TWO THINGS HERE THAT WERE CAUSING CONFUSION. FIRST WAS HE RECEIVED A MESSAGE FROM DR MALDONADO EXPLAINING THAT THE PATIENT WAS GOING TO HOLD OFF ON HOSPICE AND DO SOME RADIATION ON HER ARM. I HAVE EXPLAINED THAT I DID NOT TALK WITH THEM, THAT I WAS JUST CALLING FOR ORDERS. HE ALSO STATED THAT HE WOULD LIKE THE DIARRHEA TO BE BETTER CONTROLLED AND THE PATIENT TO BE ABLE TO TAKE IN PO BETTER. AND WITH THAT HE WOULD NOT BE READY TO DISCHARGE UNTIL TOMORROW. I EXPLAINED I WOULD CLARIFY THE HOSPICE. MICKI URIBE CAME TO THE DESK AND I EXPLAINED THE CONVERSATION I JUST HAD WITH DR YOO. HE STATED THAT HE WOULD GO BACK AND ASK HER. PER HIM, THE PATIENT IS WANTING HOSPICE, THE EQUIPMENT WOULD NOT BE DELIVERED UNTIL TOMORROW SECONDARY TO NEEDING TO CLEAN THE HOUSE BEFORE IT COULD BE DELIVERED. PER RONY, SHE STATED THE WANT OF RADIATION WAS INCORRECT AND SHE WAS GOING HOME ON HOSPICE. RONY WILL GIVE THIS CLARIFICATON TO DR YOO SINCE HE IS THE ONE WHO HAD THE CONVERSATION WITH THE PATIENT AND HE WILL BE ABLE TO BETTER ANSWER ANY QUESTION DR YOO MAY HAVE. DCP- Discharge Planning Updated by [id number]: Chidi Davila on 03/11/19 8:[address] Patient Name: ANTONINO ALMARAZ Encounter No: [id number] : 1960 Primary Insurance: MEDICARE A & B Anticipated DC Date: 03-11-2019 Planned Disposition: Hospice Home External Planned Provider: [facility] DCP follow-up note: CM RECEIVED CALL FROM DOROTHY OF [facility], , HOSPICE HAS EVALUATED PT LAST NIGHT, PT IS HOME HOSPICE APPROPRIATE AND HOSPICE WILL ADMIT PT AFTER HOSPITAL DISCHARGE AND ARRIVAL AT HOME. [facility] IS DELIVERING MEDICAL EQUIPMENT TO PT'S HOME TODAY. [facility] WILL CALL CM WHEN ALL EQUIPMENT IS DELIVERED TO HOME FOR PT'S DISCHARGE HOME AND ADMISSION TO [facility] AFTER ARRIVAL HOME TODAY. Chdii Davila, CASE MANAGEMENT DCP- Discharge Planning Updated by : Chidi Davila on 03/10/19 3:[address] Patient Name: ANTONINO ALMARAZ Admission Status: ER Accout number: [id number] Admission Date: 03-09-2019 : 1960 Admission Diagnosis: Attending: SUSAN YOO Current LOS: 1 Anticipated DC Date: 03-11-2019 Planned Disposition: Hospice Home Primary Insurance: MEDICARE A & B PLANNED EXTERNAL PROVIDER: [facility] Discharge Planning Comments: CM MET WITH PT AND DAUGHTER IN ROOM TO DISCUSS DISCHARGE PLANNING AND NEEDS. ANTONINO ALMARAZ provided verbal consent to discuss current and ongoing needs with/in the presence of: DAUGHTER, PATIENCE. 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 CM EXPLAINED HOW TO FILL OUT FORM AND INFORMED THEM HOURS OF NOTARY AVAILABILITY AT HOSPITAL. PT REPORTS LIVING AT HOME DEPENDENTLY ON BOYFRIEND WHO ASSISTS WITH MEDICATION MANAGEMENT, BATHING AND GETTING PT UP OUT OF BED. PT HAS HOME AND PORTABLE OXGYEN AND ROLLATOR WALKER WITH NO MEDICAL EQUIPMENT PROVIDER PREFERENCE. PT HAS NO OUTSIDE SERVICES ASSISTING IN THE HOME. CM DISCUSSED AVAILABILITY OF HOME HEALTH, REHAB SERVICES AND MEDICAL EQUIPMENT. PT AND DAUGHTER WOULD LIKE TO TALK TO HOSPICE, HAVE ALREADY SELECTED HOSPICE COMPANY, [employer]. CHOICE SIGNED. PT REPORTS HER FAMILY WILL PICK HER UP FOR DISCHARGE HOME. IMPORTANT MESSAGE FROM MEDICARE PROVIDED AND EXPLAINED. CM CALLED [facility], NOTIFIED DOROTHY OF REFERRAL AT [phone], CM FAXED REFERRAL INFORMATION TO [facility] AT [phone]. [facility] TO MEET WITH PT AND DAUGHTER THIS AFTERNOON. CM WAITING HOSPICE ADMISSION DETERMINATION AND MEDICAL EQUIPMENT ARRANGEMENT FOR [facility]. After School Teacher: Chidi Davila DCPIA - Discharge Planning Initial Assessment Updated by [id number]: Chidi Davila on 03/10/19 4:14 pm * Is the patient Alert and Oriented? Yes * How many steps to enter\exit or inside your home? * PCP DR. YOO * Pharmacy [facility] [address] * Preadmission Environment Home with Family * ADLs Partial Dependent * Partial ADLs (Assistance needed) Bathing Medication Management Transfers * Equipment Oxygen Rolling Walker * Other Equipment ROLLATOR WALKER, HOME AND PORTABLE OXYGEN FROM UNKNOWN PROVIDER * List name and contact numbers for known caregivers / representatives who currently or will assist patient after discharge: ALIA LYONS, DTR, * Verbal permission to speak to the caregivers and representatives has been obtained from the patient. Yes * Community resources currently utilized None * Please name any agencies selected above. NONE * Additional services required to return to the preadmission environment? Yes * Can the patient safely return to the preadmission environment? Yes * Has this patient been hospitalized within the prior 30 days at any hospital? Yes Coverage Notice Reviewer: [id number] Shorty Davila Notice Issued Date-Time: 03/10/2019 15:45 Notice Type: Patient Choice Letter Notice Delivered To: Family Member Relationship to Patient: Daughter Gas Check Pad Maker Name: ALIA LYONS Delivery Method: HAND - Hand Delivered Cara Days: Prior Verbal Notification: Recipient Understood Notice: Yes Recipient Signature: Yes Med Rec Note Co-signed by Attending: Coverage Notice Comment: [facility] Reviewer: [id number] Davila Notice Issued Date-Time: 03/10/2019 15:45 Notice Type: IM Discharge Notice Notice Delivered To: Family Member Relationship to Patient: Daughter Gas Check Pad Maker Name: ALIA LYONS Delivery Method: HAND - Hand Delivered Cara Days: Prior Verbal Notification: Recipient Understood Notice: Yes Recipient Signature: Yes Med Rec Note Co-signed by Attending: Coverage Notice Comment: Last DP export: 03/11/19 8:34 a Patient Name: ANTONINO ALMARAZ Page [phone] at 1203 All edits/amendments must be made on the electronic document DICTATION DATE: 03/11/19 1202 SHOPPER: JIM 03/11/19 1202 RPT#: [id number] DC DATE: STATUS: ADM IN [facility] [address] [place] [address] END OF REPORT
--- NOTE | 2019-03-11 12:34 | NUR ---
C/O PAIN AGAIN SHE IS DOUBLED OVER SAYING IT HURTS IN HER BACK AND CHEST AREA. DILUADID IS GIVEN IV AT THIS TIME. ALERT ABLE TO VOICE NEEDS. CL IN REACH
--- NOTE | 2019-03-11 14:30 | NUR ---
HAS BEEN UP IN HALLWAY AMBULATING WITH WALKER WITH NO O2 ON. CHECKED HER SAT AND IT WAS 81%. EDUCATION TO LET US ASSIST SO WE CAN USE PORTABLE O2 WHILE UP. SHE GOT BACK IN BED AND SAT AFTER O2 APPLIED CAME UP TO 95%.
--- NOTE | 2019-03-11 15:21 | NUR ---
Nutrition Follow Up: Pt was unavailable at the time of RD visit. Interview deferred. Diet: Regular; 1.5 L FR PO Intake: 40% meal avg No BM since admit Meds and labs reviewed Rec continue current diet. RD following.
[2019-03-11 15:22] VITALS: BP 121/69
--- NOTE | 2019-03-11 16:27 | MORECARE ---
CASE MANAGEMENT DISCHARGE SUMMARY PATIENT: ANTONINO ALMARAZ UNIT: [id number] ADM DATE: 03/09/19 AGE: 58 : 64 SEX: F ROOM/BED: D.4158 AUTHOR: KRISHNA ROCHA PHYSICIAN: REFERRING PHYSICIAN: SUSAN YOO MD DATE OF SERVICE: 03/11/19 Discharge Plan Patient Name: ANTONINO ALMARAZ Facility: [facility]:[place] : 1960 Planned Disposition: Hospice Home Anticipated Discharge Date: 03/12/19 Discharge Date: Expected LOS: 3 Initial Reviewer: [id number] Initial Review Date: 03/09/2019 Generated: 03/11/19 5:27 pm Comments DCP- Discharge Planning Updated by [id number]: Maday Sanchez on 03/11/19 10:[address] CALLED AND SPOKE WITH DR YOO IN REGARDS TO DISCHARGE ORDERS. EXPLAINED THAT HOSPICE WAS DELIVERING THE EQUIPMENT TODAY AND WOULD ADMIT TONIGHT IF HE WAS READY FOR HER TO DISCHARGE. PER DR YOO THERE ARE TWO THINGS HERE THAT WERE CAUSING CONFUSION. FIRST WAS HE RECEIVED A MESSAGE FROM DR MALDONADO EXPLAINING THAT THE PATIENT WAS GOING TO HOLD OFF ON HOSPICE AND DO SOME RADIATION ON HER ARM. I HAVE EXPLAINED THAT I DID NOT TALK WITH THEM, THAT I WAS JUST CALLING FOR ORDERS. HE ALSO STATED THAT HE WOULD LIKE THE DIARRHEA TO BE BETTER CONTROLLED AND THE PATIENT TO BE ABLE TO TAKE IN PO BETTER. AND WITH THAT HE WOULD NOT BE READY TO DISCHARGE UNTIL TOMORROW. I EXPLAINED I WOULD CLARIFY THE HOSPICE. MICKI URIBE CAME TO THE DESK AND I EXPLAINED THE CONVERSATION I JUST HAD WITH DR YOO. HE STATED THAT HE WOULD GO BACK AND ASK HER. PER HIM, THE PATIENT IS WANTING HOSPICE, THE EQUIPMENT WOULD NOT BE DELIVERED UNTIL TOMORROW SECONDARY TO NEEDING TO CLEAN THE HOUSE BEFORE IT COULD BE DELIVERED. PER RONY, SHE STATED THE WANT OF RADIATION WAS INCORRECT AND SHE WAS GOING HOME ON HOSPICE. RONY WILL GIVE THIS CLARIFICATON TO DR YOO SINCE HE IS THE ONE WHO HAD THE CONVERSATION WITH THE PATIENT AND HE WILL BE ABLE TO BETTER ANSWER ANY QUESTION DR YOO MAY HAVE. DCP- Discharge Planning Updated by [id number]: Chidi Davila on 03/11/19 8:[address] Patient Name: ANTONINO ALMARAZ Encounter No: [id number] : 1960 Primary Insurance: MEDICARE A & B Anticipated DC Date: 03-11-2019 Planned Disposition: Hospice Home External Planned Provider: [facility] DCP follow-up note: CM RECEIVED CALL FROM DOROTHY OF [facility], , HOSPICE HAS EVALUATED PT LAST NIGHT, PT IS HOME HOSPICE APPROPRIATE AND HOSPICE WILL ADMIT PT AFTER HOSPITAL DISCHARGE AND ARRIVAL AT HOME. [facility] IS DELIVERING MEDICAL EQUIPMENT TO PT'S HOME TODAY. [facility] WILL CALL CM WHEN ALL EQUIPMENT IS DELIVERED TO HOME FOR PT'S DISCHARGE HOME AND ADMISSION TO [facility] AFTER ARRIVAL HOME TODAY. Chidi Davila, CASE MANAGEMENT DCP- Discharge Planning Updated by [id number]: Chidi Davila on 03/10/19 3:[address] Patient Name: ANTONINO ALMARAZ Admission Status: ER Accout number: [id number] Admission Date: 03-09-2019 : 1960 Admission Diagnosis: Attending: SUSAN YOO Current LOS: 1 Anticipated DC Date: 03-11-2019 Planned Disposition: Hospice Home Primary Insurance: MEDICARE A & B PLANNED EXTERNAL PROVIDER: [facility] Discharge Planning Comments: CM MET WITH PT AND DAUGHTER IN ROOM TO DISCUSS DISCHARGE PLANNING AND NEEDS. ANTONINO ALMARAZ provided verbal consent to discuss current and ongoing needs with/in the presence of: DAUGHTER, PATIENCE. PT WANTS DAUGHTER, PATIENCE TO BE POWER OF GRAVES REGISTRATION SPECIALIST. CM EXPLAINED HOW TO FILL OUT FORM AND INFORMED THEM HOURS OF NOTARY AVAILABILITY AT HOSPITAL. PT REPORTS LIVING AT HOME DEPENDENTLY ON BOYFRIEND WHO ASSISTS WITH MEDICATION MANAGEMENT, BATHING AND GETTING PT UP OUT OF BED. PT HAS HOME AND PORTABLE OXGYEN AND ROLLATOR WALKER WITH NO MEDICAL EQUIPMENT PROVIDER PREFERENCE. PT HAS NO OUTSIDE SERVICES ASSISTING IN THE HOME. CM DISCUSSED AVAILABILITY OF HOME HEALTH, REHAB SERVICES AND MEDICAL EQUIPMENT. PT AND DAUGHTER WOULD LIKE TO TALK TO HOSPICE, HAVE ALREADY SELECTED HOSPICE COMPANY, [facility]. CHOICE SIGNED. PT REPORTS HER FAMILY WILL PICK HER UP FOR DISCHARGE HOME. IMPORTANT MESSAGE FROM MEDICARE PROVIDED AND EXPLAINED. CM CALLED [facility], NOTIFIED DOROTHY OF REFERRAL AT [phone], CM FAXED REFERRAL INFORMATION TO [facility] AT [phone]. [facility] TO MEET WITH PT AND DAUGHTER THIS AFTERNOON. CM WAITING HOSPICE ADMISSION DETERMINATION AND MEDICAL EQUIPMENT ARRANGEMENT FOR [facility]. Pecan Sheller: Chidi Davila DCPIA - Discharge Planning Initial Assessment Updated by [id number]: Chidi Davila on 03/10/19 4:14 pm * Is the patient Alert and Oriented? Yes * How many steps to enter\exit or inside your home? * PCP DR. YOO * Pharmacy [facility] OR [place] * Preadmission Environment Home with Family * ADLs Partial Dependent * Partial ADLs (Assistance needed) Bathing Medication Management Transfers * Equipment Oxygen Rolling Walker * Other Equipment ROLLATOR WALKER, HOME AND PORTABLE OXYGEN FROM UNKNOWN PROVIDER * List name and contact numbers for known caregivers / representatives who currently or will assist patient after discharge: ALIA LYONS, DTR, * Verbal permission to speak to the caregivers and representatives has been obtained from the patient. Yes * Community resources currently utilized None * Please name any agencies selected above. NONE * Additional services required to return to the preadmission environment? Yes * Can the patient safely return to the preadmission environment? Yes * Has this patient been hospitalized within the prior 30 days at any hospital? Yes Coverage Notice Reviewer: [id number] Shorty Davila Notice Issued Date-Time: 03/10/2019 15:45 Notice Type: Patient Choice Letter Notice Delivered To: Family Member Relationship to Patient: Daughter Physician Coder Name: ALIA LYONS Delivery Method: HAND - Hand Delivered Cara Days: Prior Verbal Notification: Recipient Understood Notice: Yes Recipient Signature: Yes Med Rec Note Co-signed by Attending: Coverage Notice Comment: [facility] Reviewer: [id number] Davila Notice Issued Date-Time: 03/10/2019 15:45 Notice Type: IM Discharge Notice Notice Delivered To: Family Member Relationship to Patient: Daughter Physician Coder Name: ALIA LYONS Delivery Method: HAND - Hand Delivered Cara Days: Prior Verbal Notification: Recipient Understood Notice: Yes Recipient Signature: Yes Med Rec Note Co-signed by Attending: Coverage Notice Comment: Last DP export: 03/11/19 11:03 a Patient Name: ANTONINO ALMARAZ Page [id number] at 1250 All edits/amendments must be made on the electronic document DICTATION DATE: 03/11/195 TELE RN: JIM 03/11/198 RPT#: [id number] DC DATE: STATUS: ADM IN [facility] [address] [place] [address] END OF REPORT
--- NOTE | 2019-03-11 16:34 | MORECARE ---
CASE MANAGEMENT DISCHARGE SUMMARY PATIENT: ANTONINO ALMARAZ UNIT: [id number] ADM DATE: 03/09/19 AGE: 58 : 64 SEX: F ROOM/BED: D.3827 AUTHOR: KRISHNA ROCHA PHYSICIAN: REFERRING PHYSICIAN: SUSAN YOO MD DATE OF SERVICE: 03/11/19 Discharge Plan Patient Name: ANTONINO ALMARAZ Facility: [facility]:[place] : 1960 Planned Disposition: Hospice Home Anticipated Discharge Date: 03/12/19 Discharge Date: Expected LOS: 3 Initial Reviewer: [id number] Initial Review Date: 03/09/2019 Generated: 03/11/19 5:34 pm Comments DCP- Discharge Planning Updated by [id number]: Chidi Davila on 03/11/19 3:[address] Patient Name: ANTONINO ALMARAZ Encounter No: [id number] : 1960 Primary Insurance: MEDICARE A & B Anticipated DC Date: 03-12-2019 Planned Disposition: Hospice Home External Planned Provider: [facility] DCP follow-up note: CM SPOKE TO DOROTHY OF [facility], PT'S FAMILY WILL NOT BE READY FOR EQUIPMENT UNTIL TOMORROW. [facility] TO DELIVER EQUIPMENT TOMORROW AND CAN ADMIT PT TOMORROW WHEN PT ARRIVES HOME. CM SPOKE TO PT AND DAUGHTER IN ROOM, BOTH IN AGREEMENT WITH PLAN, REPORT THAT PT'S BOYFRIEND IS WORKING TO GET A ROOM CLEANED FOR DELIVERY OF EQUIPMENT, IT SHOULD BE READY FOR DELIVERY AND FOR PT TO COME HOME TOMORROW. PT DOES NOT WISH TO CONTINUE RADIATION ON HER ARM OR HEAD. PT WANTS COMFORT CARE, HOSPICE AT HOME. CM NOTIFED DR. YOO. FOR DISCHARGE 03-12-19, NOTIFY [facility] AT [phone], FAX DISCHARGE INFORMATION TO [facility] AT [phone]. [facility] TO ADMIT PT AT HOME FOR HOSPICE. Chidi Davila, CASE MANAGEMENT DCP- Discharge Planning Updated by [id number]: Maday Sanchez on 03/11/19 10:[address] CALLED AND SPOKE WITH DR YOO IN REGARDS TO DISCHARGE ORDERS. EXPLAINED THAT HOSPICE WAS DELIVERING THE EQUIPMENT TODAY AND WOULD ADMIT TONIGHT IF HE WAS READY FOR HER TO DISCHARGE. PER DR YOO THERE ARE TWO THINGS HERE THAT WERE CAUSING CONFUSION. FIRST WAS HE RECEIVED A MESSAGE FROM DR MALDONADO EXPLAINING THAT THE PATIENT WAS GOING TO HOLD OFF ON HOSPICE AND DO SOME RADIATION ON HER ARM. I HAVE EXPLAINED THAT I DID NOT TALK WITH THEM, THAT I WAS JUST CALLING FOR ORDERS. HE ALSO STATED THAT HE WOULD LIKE THE DIARRHEA TO BE BETTER CONTROLLED AND THE PATIENT TO BE ABLE TO TAKE IN PO BETTER. AND WITH THAT HE WOULD NOT BE READY TO DISCHARGE UNTIL TOMORROW. I EXPLAINED I WOULD CLARIFY THE HOSPICE. RONY, CM CAME TO THE DESK AND I EXPLAINED THE CONVERSATION I JUST HAD WITH DR YOO. HE STATED THAT HE WOULD GO BACK AND ASK HER. PER HIM, THE PATIENT IS WANTING HOSPICE, THE EQUIPMENT WOULD NOT BE DELIVERED UNTIL TOMORROW SECONDARY TO NEEDING TO CLEAN THE HOUSE BEFORE IT COULD BE DELIVERED. PER RONY, SHE STATED THE WANT OF RADIATION WAS INCORRECT AND SHE WAS GOING HOME ON HOSPICE. RONY WILL GIVE THIS CLARIFICATON TO DR YOO SINCE HE IS THE ONE WHO HAD THE CONVERSATION WITH THE PATIENT AND HE WILL BE ABLE TO BETTER ANSWER ANY QUESTION DR YOO MAY HAVE. DCP- Discharge Planning Updated by [id number]: Chidi Davila on 03/11/19 8:[address] Patient Name: ANTONINO ALMARAZ Encounter No: [id number] : 1960 Primary Insurance: MEDICARE A & B Anticipated DC Date: 03-11-2019 Planned Disposition: Hospice Home External Planned Provider: [facility] DCP follow-up note: CM RECEIVED CALL FROM [facility], , HOSPICE HAS EVALUATED PT LAST NIGHT, PT IS HOME HOSPICE APPROPRIATE AND HOSPICE WILL ADMIT PT AFTER HOSPITAL DISCHARGE AND ARRIVAL AT HOME. [facility] IS DELIVERING MEDICAL EQUIPMENT TO PT'S HOME TODAY. [facility] WILL CALL CM WHEN ALL EQUIPMENT IS DELIVERED TO HOME FOR PT'S DISCHARGE HOME AND ADMISSION TO [facility] AFTER ARRIVAL HOME TODAY. Chidi Davila, CASE MANAGEMENT DCP- Discharge Planning Updated by [id number]: Chidi Davila on 03/10/19 3:[address] Patient Name: ANTONINO ALMARAZ Admission Status: ER Accout number: [id number] Admission Date: 03-09-2019 : 1960 Admission Diagnosis: Attending: SUSAN YOO Current LOS: 1 Anticipated DC Date: 03-11-2019 Planned Disposition: Hospice Home Primary Insurance: MEDICARE A & B PLANNED EXTERNAL PROVIDER: [facility] Discharge Planning Comments: CM MET WITH PT AND DAUGHTER IN ROOM TO DISCUSS DISCHARGE PLANNING AND NEEDS. ANTONINO ALMARAZ provided verbal consent to discuss current and ongoing needs with/in the presence of: ALIA DAVILA. PT WANTS DAUGHTER, ALIA TO BE POWER OF CHIROPRACTOR ASSISTANT. CM EXPLAINED HOW TO FILL OUT FORM AND INFORMED THEM HOURS OF NOTARY AVAILABILITY AT HOSPITAL. PT REPORTS LIVING AT HOME DEPENDENTLY ON BOYFRIEND WHO ASSISTS WITH MEDICATION MANAGEMENT, BATHING AND GETTING PT UP OUT OF BED. PT HAS HOME AND PORTABLE OXGYEN AND ROLLATOR WALKER WITH NO MEDICAL EQUIPMENT PROVIDER PREFERENCE. PT HAS NO OUTSIDE SERVICES ASSISTING IN THE HOME. CM DISCUSSED AVAILABILITY OF HOME HEALTH, REHAB SERVICES AND MEDICAL EQUIPMENT. PT AND DAUGHTER WOULD LIKE TO TALK TO HOSPICE, HAVE ALREADY SELECTED HOSPICE COMPANY, [facility]. CHOICE SIGNED. PT REPORTS HER FAMILY WILL PICK HER UP FOR DISCHARGE HOME. IMPORTANT MESSAGE FROM MEDICARE PROVIDED AND EXPLAINED. CM CALLED [facility], NOTIFIED DOROTHY OF REFERRAL AT [phone], CM FAXED REFERRAL INFORMATION TO [facility] AT [phone]. [facility] TO MEET WITH PT AND DAUGHTER THIS AFTERNOON. CM WAITING HOSPICE ADMISSION DETERMINATION AND MEDICAL EQUIPMENT ARRANGEMENT FOR [facility]. Armored Vehicle Officer: Chidi Davila [facility]charge Planning Initial Assessment Updated by [id number]: Chidi Davila on 03/10/19 4:14 pm * Is the patient Alert and Oriented? Yes * How many steps to enter\exit or inside your home? * PCP DR. YOO * [facility] * Preadmission Environment Home with Family * ADLs Partial Dependent * Partial ADLs (Assistance needed) Bathing Medication Management Transfers * Equipment Oxygen Rolling Walker * Other Equipment ROLLATOR WALKER, HOME AND PORTABLE OXYGEN FROM UNKNOWN PROVIDER * List name and contact numbers for known caregivers / representatives who currently or will assist patient after discharge: ALIA LYONS DTR, * Verbal permission to speak to the caregivers and representatives has been obtained from the patient. Yes * Community resources currently utilized None * Please name any agencies selected above. NONE * Additional services required to return to the preadmission environment? Yes * Can the patient safely return to the preadmission environment? Yes * Has this patient been hospitalized within the prior 30 days at any hospital? Yes Coverage Notice Reviewer: [id number] Shorty Davila Notice Issued Date-Time: 03/10/2019 15:45 Notice Type: Patient Choice Letter Notice Delivered To: Family Member Relationship to Patient: Daughter Melter Helper Name: ALIA LYONS Delivery Method: HAND - Hand Delivered Cara Days: Prior Verbal Notification: Recipient Understood Notice: Yes Recipient Signature: Yes Med Rec Note Co-signed by Attending: Coverage Notice Comment: [facility] Reviewer: [id number] Shorty Davila Notice Issued Date-Time: 03/10/2019 15:45 Notice Type: IM Discharge Notice Notice Delivered To: Family Member Relationship to Patient: Daughter Melter Helper Name: ALIA LYONS Delivery Method: HAND - Hand Delivered Cara Days: Prior Verbal Notification: Recipient Understood Notice: Yes Recipient Signature: Yes Med Rec Note Co-signed by Attending: Coverage Notice Comment: Last DP export: 03/11/19 3:27 p Patient Name: ANTONINO ALMARAZ Page [id number] at 1634 All edits/amendments must be made on the electronic document DICTATION DATE: 03/11/19 1634 GENERATOR REBUILDER: JIM 03/11/19 1634 RPT#: [id number] DC DATE: STATUS: ADM IN [facility] [address] [place] [address] END OF REPORT
--- NOTE | 2019-03-11 18:31 | NUR ---
C/O PAIN IN CHEST. PAIN MED GIVEN IVP AT THIS TIME. O2 ON CL IN REACH. HEPLOCK SITE INTACT WITH GOOD BLOOD RETURN.
[2019-03-11 20:00] VITALS: BP 104/69
--- NOTE | 2019-03-11 20:40 | NUR ---
EVENING ROUNDS COMPLETED. VSS, WITH O2 @ 91 2L NC. NO S/S OF RESP DISTRESS. ON ASSESSMENT, PT STATES PAIN 10/ AND AT THIS TIME SHE IS HAVING A GENERALIZED PAIN. PT ALSO C/O NAUSEA. COMPAZINE 10MG PO, WITH DILAUDID 4MG PO WAS GIVEN ALONGSIDE PM MEDS. PT VOICED THANKS. FAMILY @BEDSIDE AT THIS TIME. WILL CPOC. CL WITHIN REACH, BED IN LOW, SR UP X2.
--- NOTE | 2019-03-11 22:08 | NUR ---
PT STATES HER PAIN IS STILL 8/10 @ THIS TIME. WILL ADMINISTER NEXT DOSE WHEN DUE. AIR TURNED DOWN IN PT'S ROOM. PT VOICED THANKS. DAUGHTER AT BEDSIDE. WILL CPOC.
--- NOTE | 2019-03-12 02:18 | NUR ---
I have reviewed this patient and I concur with the Shift Assessment completed by the Licensed Practical Nurse today this shift.
[2019-03-12 04:00] VITALS: BP 137/81
--- NOTE | 2019-03-12 04:19 | NUR ---
PT TRIED TO GET UP IN BED THEN SHE FELL BACK IN BED AND BUMP HER HEAD ON SR. PT STATES SHE DID NOT HIT THE FLOOR. ON ASSESSMENT PT DENIES ANY PAIN, NOR DOES SHE FEEL LIKE SHE BROKE ANYTHING. BED ALARM WAS ON @ THIS TIME. NO NORMAN ALARM. PT FAMILY ALSO @ BEDSIDE STATES SHE DOES NOT FEEL SHE HURT ANYTHING, THAT IT WAS JUST PT TRYING TO GET UP AND FALLING BACK IN BED. WILL NOTIFY PROVIDER. CL IN REACH, BED IN LOW, SR UP X2.
--- NOTE | 2019-03-12 07:00 | NUR ---
RECEIVED REPORT FROM NIGHTSHIFT AND CARE ASSUMED. SITTING UP IN BED WITH DAUGHTER IN THE ROOM. SHE HAD O2 OUT AND WAS ASKED TO PUT IT BACK ON AND SHE DID. HER AND DAUGHTER UNDERSTAND THE IMPORTANCE OF THIS. CL IN REACH. [facility] INTACT.
[2019-03-12 08:53] LABS: BASOPHILS 0.1 % (0-2); EOSINOPHILS 1.1 % (0-7); HEMATOCRIT 28.1 % (36.0-48.0); HEMOGLOBIN 9.9 g/dL (12-16); IMMATURE GRANULOCYTES 0.4 % (0-5); LYMPHOCYTES 6.7 % (15-50); MCH 34.4 pg (26.0-34.0); MCHC 35.2 g/dL (31.0-37.0); MCV 97.6 fL (80.0-100.0); MEAN PLATELET VOLUME 9.7 fL (7.4-10.4); MONOCYTES 8.1 % (2-11); NEUTROPHILS 83.6 % (40-80); PLATELET COUNT 143 10x3/uL (130-400); RBC 2.88 10x6/uL (4.00-5.40); RDW 15.2 % (11.5-14.5)
[2019-03-12 08:54] LABS: WBC 9.1 10x3/uL (4.8-10.8)
[2019-03-12 09:06] LABS: CALC OSMOLALITY 261 mosm/kg (275-300); CALCIUM 7.9 mg/dL (8.5-10.1); CARBON DIOXIDE 30.8 mmol/L (21.0-32.0); CHLORIDE - SERUM 90 mmol/L (98-107); CREATININE - SERUM 0.7 mg/dL (0.6-1.3); GLUCOSE 159 mg/dL (74-106); SODIUM 130 mmol/L (136-145); UREA NITROGEN 6 mg/dL (7-18); eGFR NON AFRICAN AMERICAN > 90 mL/min (90-120)
--- NOTE | 2019-03-12 09:06 | NUR ---
C/O PAIN IN CHEST. IV PAIN MED GIVEN AT THIS TIME. IV SITE WITH NS AT TKO SITE IS CLEAR. SHE IS ANXIOUS AT TIMES AND TEARFUL SOMETIMES TO. SHE REQUIRES LOTS OF TIME LETTING HER TALK AND DEAL WITH DX.
[2019-03-12 09:07] LABS: POTASSIUM - SERUM 3.1 mmol/L (3.5-5.1)
[2019-03-12 09:12] VITALS: BP 132/69
--- NOTE | 2019-03-12 09:30 | NUR ---
PAPI FROM HOSPICE CALLED AND STATED DO NOT DISCHARGE HER HOME UNTIL AFTER 3 PM TODAY DUE TO FAMILY CANNT BE THERE UNTIL THEN AND EQUIPMENT WONT BE DELIVERED UNTIL THEN.
[2019-03-12] MEDS ORDERED: DILAUDID2 MG PO (09:43)
[2019-03-12] MEDS ORDERED: PROTONIX40 MG PO (09:44)
--- NOTE | 2019-03-12 11:01 | MORECARE ---
CASE MANAGEMENT DISCHARGE SUMMARY PATIENT: ANTONINO ALMARAZ UNIT: [id number] ADM DATE: 03/09/19 AGE: 58 : 64 SEX: F ROOM/BED: D.6035 AUTHOR: KRISHNA ROCHA PHYSICIAN: REFERRING PHYSICIAN: SUSAN YOO MD DATE OF SERVICE: 03/12/19 Discharge Plan Patient Name: ANTONINO ALMARAZ Facility: [facility]:[place] : 1960 Planned Disposition: Hospice Home Anticipated Discharge Date: 03/12/19 Discharge Date: Expected LOS: 3 Initial Reviewer: [id number] Initial Review Date: 03/09/2019 Generated: 03/12/19 12:01 pm Comments DCP- Discharge Planning Updated by [id number]: Toma Rich on 03/12/19 9:[address] Patient Name: ANTONINO ALMARAZ Admission Status: ER Accout number: [id number] Admission Date: 03-09-2019 : 1960 Admission Diagnosis:MALIGNANT NEOPLASM OF UNSP PART OF UNSP BRONCHUS OR GALO Attending: SUSAN YOO Current LOS: 3 Anticipated DC Date: 03-12-2019 Planned Disposition: Hospice Home Primary Insurance: MEDICARE A & B Discharge Planning Comments: PT DAUGHTER AT BEDSIDE. EQUIPMENT AT THE HOME IS BEING SET UP TODAY AND WILL BE READY FOR DC. Public Policy Associate: Toma Rich DCP- Discharge Planning Updated by [id number]: Chidi Davila on 03/11/19 3:[address] Patient Name: ANTONINO ALMARAZ Encounter No: [id number] : 1960 Primary Insurance: MEDICARE A & B Anticipated DC Date: 03-12-2019 Planned Disposition: Hospice Home External Planned Provider: [facility] DCP follow-up note: CM SPOKE TO DOROTHY OF [facility], PT'S FAMILY WILL NOT BE READY FOR EQUIPMENT UNTIL TOMORROW. [facility] TO DELIVER EQUIPMENT TOMORROW AND CAN ADMIT PT TOMORROW WHEN PT ARRIVES HOME. CM SPOKE TO PT AND DAUGHTER IN ROOM, BOTH IN AGREEMENT WITH PLAN, REPORT THAT PT'S BOYFRIEND IS WORKING TO GET A ROOM CLEANED FOR DELIVERY OF EQUIPMENT, IT SHOULD BE READY FOR DELIVERY AND FOR PT TO COME HOME TOMORROW. PT DOES NOT WISH TO CONTINUE RADIATION ON HER ARM OR HEAD. PT WANTS COMFORT CARE, HOSPICE AT HOME. CM NOTIFED DR. YOO. FOR DISCHARGE 03-12-19, NOTIFY [facility] [place] AT [phone], FAX DISCHARGE INFORMATION TO [facility] [place] AT [phone]. [facility] [place] AT [place] FOR HOSPICE. Chidi Davila, CASE MANAGEMENT DCP- Discharge Planning Updated by [id number]: Maday Daniel on 03/11/19 10:[address] CALLED AND SPOKE WITH DR YOO IN REGARDS TO DISCHARGE ORDERS. EXPLAINED THAT HOSPICE WAS DELIVERING THE EQUIPMENT TODAY AND WOULD ADMIT TONIGHT IF HE WAS READY FOR HER TO DISCHARGE. PER DR YOO THERE ARE TWO THINGS HERE THAT WERE CAUSING CONFUSION. FIRST WAS HE RECEIVED A MESSAGE FROM DR MALDONADO EXPLAINING THAT THE PATIENT WAS GOING TO HOLD OFF ON HOSPICE AND DO SOME RADIATION ON HER ARM. I HAVE EXPLAINED THAT I DID NOT TALK WITH THEM, THAT I WAS JUST CALLING FOR ORDERS. HE ALSO STATED THAT HE WOULD LIKE THE DIARRHEA TO BE BETTER CONTROLLED AND THE PATIENT TO BE ABLE TO TAKE IN PO BETTER. AND WITH THAT HE WOULD NOT BE READY TO DISCHARGE UNTIL TOMORROW. I EXPLAINED I WOULD CLARIFY THE HOSPICE. RONY, CM CAME TO THE DESK AND I EXPLAINED THE CONVERSATION I JUST HAD WITH DR YOO. HE STATED THAT HE WOULD GO BACK AND ASK HER. PER HIM, THE PATIENT IS WANTING HOSPICE, THE EQUIPMENT WOULD NOT BE DELIVERED UNTIL TOMORROW SECONDARY TO NEEDING TO CLEAN THE HOUSE BEFORE IT COULD BE DELIVERED. PER RONY, SHE STATED THE WANT OF RADIATION WAS INCORRECT AND SHE WAS GOING HOME ON HOSPICE. RONY WILL GIVE THIS CLARIFICATON TO DR YOO SINCE HE IS THE ONE WHO HAD THE CONVERSATION WITH THE PATIENT AND HE WILL BE ABLE TO BETTER ANSWER ANY QUESTION DR YOO MAY HAVE. DCP- Discharge Planning Updated by [id number]: Chidi Davila on 03/11/19 8:[address] Patient Name: ANTONINO ALMARAZ Encounter No: [id number] : 1960 Primary Insurance: MEDICARE A & B Anticipated DC Date: 03-11-2019 Planned Disposition: Hospice Home External Planned Provider: [facility] [place] DCP follow-up note: CM RECEIVED CALL FROM [facility] [place], , HOSPICE HAS EVALUATED PT LAST NIGHT, PT IS HOME HOSPICE APPROPRIATE AND HOSPICE WILL ADMIT PT AFTER HOSPITAL DISCHARGE AND ARRIVAL AT HOME. [facility] IS DELIVERING MEDICAL EQUIPMENT TO PT'S HOME TODAY. DOROTHY OF [facility] WILL CALL CM WHEN ALL EQUIPMENT IS DELIVERED TO HOME FOR PT'S DISCHARGE HOME AND ADMISSION TO [facility] AFTER ARRIVAL HOME TODAY. Chidi Davila, CASE MANAGEMENT DCP- Discharge Planning Updated by [id number]: Chidi Davila on 03/10/19 3:[address] Patient Name: ANTONINO ALMARAZ Admission Status: ER Accout number: [id number] Admission Date: 03-09-2019 : 1960 Admission Diagnosis: Attending: SUSAN YOO Current LOS: 1 Anticipated DC Date: 03-11-2019 Planned Disposition: Hospice Home Primary Insurance: MEDICARE A & B PLANNED EXTERNAL PROVIDER: [facility] Discharge Planning Comments: CM MET WITH PT AND DAUGHTER IN ROOM TO DISCUSS DISCHARGE PLANNING AND NEEDS. ANTONINO ALMARAZ provided verbal consent to discuss current and ongoing needs with/in the presence of: DAUGHTER, PATIENCE. 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 CM EXPLAINED HOW TO FILL OUT FORM AND INFORMED THEM HOURS OF NOTARY AVAILABILITY AT HOSPITAL. PT REPORTS LIVING AT HOME DEPENDENTLY ON BOYFRIEND WHO ASSISTS WITH MEDICATION MANAGEMENT, BATHING AND GETTING PT UP OUT OF BED. PT HAS HOME AND PORTABLE OXGYEN AND ROLLATOR WALKER WITH NO MEDICAL EQUIPMENT PROVIDER PREFERENCE. PT HAS NO OUTSIDE SERVICES ASSISTING IN THE HOME. CM DISCUSSED AVAILABILITY OF HOME HEALTH, REHAB SERVICES AND MEDICAL EQUIPMENT. PT AND DAUGHTER WOULD LIKE TO TALK TO HOSPICE, HAVE ALREADY SELECTED HOSPICE COMPANY, [facility]. CHOICE SIGNED. PT REPORTS HER FAMILY WILL PICK HER UP FOR DISCHARGE HOME. IMPORTANT MESSAGE FROM MEDICARE PROVIDED AND EXPLAINED. CM CALLED [facility], NOTIFIED DOROTHY OF REFERRAL AT [phone], CM FAXED REFERRAL INFORMATION TO [facility] [place] AT [phone]. [facility] TO MEET WITH PT AND DAUGHTER THIS AFTERNOON. CM WAITING HOSPICE ADMISSION DETERMINATION AND MEDICAL EQUIPMENT ARRANGEMENT FOR [facility]. Public Policy Associate: Chidi Davila DCPIA - Discharge Planning Initial Assessment Updated by [email or web address]: Chidi Davila on 03/10/19 4:14 pm * Is the patient Alert and Oriented? Yes * How many steps to enter\exit or inside your home? * PCP DR. YOO * Pharmacy [facility] * Preadmission Environment Home with Family * ADLs Partial Dependent * Partial ADLs (Assistance needed) Bathing Medication Management Transfers * Equipment Oxygen Rolling Walker * Other Equipment ROLLATOR WALKER, HOME AND PORTABLE OXYGEN FROM UNKNOWN PROVIDER * List name and contact numbers for known caregivers / representatives who currently or will assist patient after discharge: ALIA LYONSZURIR, * Verbal permission to speak to the caregivers and representatives has been obtained from the patient. Yes * Community resources currently utilized None * Please name any agencies selected above. NONE * Additional services required to return to the preadmission environment? Yes * Can the patient safely return to the preadmission environment? Yes * Has this patient been hospitalized within the prior 30 days at any hospital? Yes Coverage Notice Reviewer: [id number] Davila Notice Issued Date-Time: 03/10/2019 15:45 Notice Type: Patient Choice Letter Notice Delivered To: Family Member Relationship to Patient: Daughter Geomorphology Teacher Name: ALIA LYONS Delivery Method: HAND - Hand Delivered Cara Days: Prior Verbal Notification: Recipient Understood Notice: Yes Recipient Signature: Yes Med Rec Note Co-signed by Attending: Coverage Notice Comment: [facility] Reviewer: [id number] Davila Notice Issued Date-Time: 03/10/2019 15:45 Notice Type: IM Discharge Notice Notice Delivered To: Family Member Relationship to Patient: Daughter Geomorphology Teacher Name: ALIA LYONS Delivery Method: HAND - Hand Delivered Cara Days: Prior Verbal Notification: Recipient Understood Notice: Yes Recipient Signature: Yes Med Rec Note Co-signed by Attending: Coverage Notice Comment: Reviewer: [id number] Shorty Rich Notice Issued Date-Time: 03/12/2019 10:15 Notice Type: IM Discharge Notice Notice Delivered To: Patient Relationship to Patient: Self Geomorphology Teacher Name: Delivery Method: HAND - Hand Delivered Cara Days: Prior Verbal Notification: Recipient Understood Notice: Yes Recipient Signature: Yes Med Rec Note Co-signed by Attending: Coverage Notice Comment: Last DP export: 03/11/19 3:34 p Patient Name: ANTONINO ALMARAZ Page [id number] at 1101 All edits/amendments must be made on the electronic document DICTATION DATE: 03/12/19 1101 DIRECTOR OF DIAGNOSTIC IMAGING: JIM 03/12/19 1101 RPT#: [id number] DC DATE: STATUS: ADM IN [facility] [address] [place] [address] END OF REPORT
[2019-03-12 11:37] VITALS: BP 99/52
--- NOTE | 2019-03-12 12:37 | NUR ---
C/O PAIN SO DILAUDID PILLS WERE GIVEN PER ORDERS FOR PAIN IN CHEST AND BACK. NO OTHER C/O.
--- NOTE | 2019-03-12 13:51 | NUR ---
COMPAZINE GIVEN PO AT THIS TIME FOR NAUSEA C/O. NO VOMITING JUST NAUSEA.
--- NOTE | 2019-03-12 14:54 | NUR ---
IV DILAUDID GIVEN AT THIS TIME DUE TO C/O PAIN. DAUGHTER IS BACK AT BEDSIDE. SHE IS CONFUSED SOME BUT REORIENT EASILY. SHE IS KEEPING O2 IN BETTER NOW.
--- NOTE | 2019-03-12 15:57 | NUR ---
SHE IS ON HER CALL LIGHT AND I WENT IN AND SHE STATED SINCE I AM GOING HOME CAN WE TAKE THIS IV OUT, I TOLD HER NO NOT UNTIL RIGHT BEFORE SHE LEAVES THEN I WILL TAKE IT OUT. SHE HAS TOOK HER TELEMENTRY OFF AND REFUSES TO PUT IT BACK ON VSS.
--- NOTE | 2019-03-12 18:18 | NUR ---
DISCHARGE AT THIS TIME. ALL DISCHARGE INSTRUCTIONS EXPLAINED WITH SCRIPT FOR DILUADID SENT WITH DAUGHTER. SHE IS BEING DISCHARGED HOME ON [facility]. VSS. RESP EVEN WITHOUT LABOR. IV D/C WITH CATH TIP INTACT. MINIMAL BLEEDING WHICH WAS CONTROLLED. DENIES ANY CURRENT PAIN. SHE WAS TOOK WITH PORTABLE O2 THAT I HOOKED UP AND TURNED ON AND ENSURED IT WAS WORKING. HER TOOK HER IN W/C TO PRIVATE AUTO.
--- NOTE | 2019-03-14 10:22 | MORECARE ---
CASE MANAGEMENT DISCHARGE SUMMARY PATIENT: ANTONINO ALMARAZ UNIT: [id number] ADM DATE: 03/09/19 AGE: 58 : 64 SEX: F ROOM/BED: D.7501 AUTHOR: KRISHNA ROCHA PHYSICIAN: REFERRING PHYSICIAN: SUSAN YOO MD DATE OF SERVICE: 03/14/19 Discharge Plan Patient Name: ANTONINO ALMARAZ Facility: [facility]:[place] : 1960 Planned Disposition: Hospice Home Anticipated Discharge Date: 03/12/19 Discharge Date: 03/12/2019 Expected LOS: 3 Initial Reviewer: [id number] Initial Review Date: 03/09/2019 Generated: 03/14/19 11:22 am Comments DCP- Discharge Planning Updated by [id number]: Toma Rich on 03/12/19 9:[address] Patient Name: ANTONINO ALMARAZ Admission Status: ER Accout number: [id number] Admission Date: 03-09-2019 : 1960 Admission Diagnosis:MALIGNANT NEOPLASM OF UNSP PART OF UNSP BRONCHUS OR GALO Attending: SUSAN YOO Current LOS: 3 Anticipated DC Date: 03-12-2019 Planned Disposition: Hospice Home Primary Insurance: MEDICARE A & B Discharge Planning Comments: PT DAUGHTER AT BEDSIDE. EQUIPMENT AT THE HOME IS BEING SET UP TODAY AND WILL BE READY FOR DC. Flow Worker: Toma Rich DCP- Discharge Planning Updated by [id number]: Chidi Davila on 03/11/19 3:[address] Patient Name: ANTONINO ALMARAZ Encounter No: [id number] : 1960 Primary Insurance: MEDICARE A & B Anticipated DC Date: 03-12-2019 Planned Disposition: Hospice Home External Planned Provider: [facility] DCP follow-up note: CM SPOKE TO DOROTHY OF [facility], PT'S FAMILY WILL NOT BE READY FOR EQUIPMENT UNTIL TOMORROW. [facility] TO DELIVER EQUIPMENT TOMORROW AND CAN ADMIT PT TOMORROW WHEN PT ARRIVES HOME. CM SPOKE TO PT AND DAUGHTER IN ROOM, BOTH IN AGREEMENT WITH PLAN, REPORT THAT PT'S BOYFRIEND IS WORKING TO GET A ROOM CLEANED FOR DELIVERY OF EQUIPMENT, IT SHOULD BE READY FOR DELIVERY AND FOR PT TO COME HOME TOMORROW. PT DOES NOT WISH TO CONTINUE RADIATION ON HER ARM OR HEAD. PT WANTS COMFORT CARE, HOSPICE AT HOME. CM NOTIFED DR. YOO. FOR DISCHARGE 03-12-19, NOTIFY [facility] AT [phone], FAX DISCHARGE INFORMATION TO [facility] AT [phone]. [facility] TO ADMIT PT AT HOME FOR HOSPICE. Chidi Davila, CASE MANAGEMENT DCP- Discharge Planning Updated by [id number]: Maday Daniel on 03/11/19 10:[address] CALLED AND SPOKE WITH DR YOO IN REGARDS TO DISCHARGE ORDERS. EXPLAINED THAT HOSPICE WAS DELIVERING THE EQUIPMENT TODAY AND WOULD ADMIT TONIGHT IF HE WAS READY FOR HER TO DISCHARGE. PER DR YOO THERE ARE TWO THINGS HERE THAT WERE CAUSING CONFUSION. FIRST WAS HE RECEIVED A MESSAGE FROM DR MALDONADO EXPLAINING THAT THE PATIENT WAS GOING TO HOLD OFF ON HOSPICE AND DO SOME RADIATION ON HER ARM. I HAVE EXPLAINED THAT I DID NOT TALK WITH THEM, THAT I WAS JUST CALLING FOR ORDERS. HE ALSO STATED THAT HE WOULD LIKE THE DIARRHEA TO BE BETTER CONTROLLED AND THE PATIENT TO BE ABLE TO TAKE IN PO BETTER. AND WITH THAT HE WOULD NOT BE READY TO DISCHARGE UNTIL TOMORROW. I EXPLAINED I WOULD CLARIFY THE HOSPICE. RONY, CM CAME TO THE DESK AND I EXPLAINED THE CONVERSATION I JUST HAD WITH DR YOO. HE STATED THAT HE WOULD GO BACK AND ASK HER. PER HIM, THE PATIENT IS WANTING HOSPICE, THE EQUIPMENT WOULD NOT BE DELIVERED UNTIL TOMORROW SECONDARY TO NEEDING TO CLEAN THE HOUSE BEFORE IT COULD BE DELIVERED. PER RONY, SHE STATED THE WANT OF RADIATION WAS INCORRECT AND SHE WAS GOING HOME ON HOSPICE. RONY WILL GIVE THIS CLARIFICATON TO DR YOO SINCE HE IS THE ONE WHO HAD THE CONVERSATION WITH THE PATIENT AND HE WILL BE ABLE TO BETTER ANSWER ANY QUESTION DR YOO MAY HAVE. DCP- Discharge Planning Updated by [id number]: Chidi Davila on 03/11/19 8:[address] Patient Name: ANTONINO ALMARAZ Encounter No: [id number] : 1960 Primary Insurance: MEDICARE A & B Anticipated DC Date: 03-11-2019 Planned Disposition: Hospice Home External Planned Provider: [facility] DCP follow-up note: CM RECEIVED CALL FROM [facility], , HOSPICE HAS EVALUATED PT LAST NIGHT, PT IS HOME HOSPICE APPROPRIATE AND HOSPICE WILL ADMIT PT AFTER HOSPITAL DISCHARGE AND ARRIVAL AT HOME. [facility] IS DELIVERING MEDICAL EQUIPMENT TO PT'S HOME TODAY. DOROTHY OF [facility] WILL CALL CM WHEN ALL EQUIPMENT IS DELIVERED TO HOME FOR PT'S DISCHARGE HOME AND ADMISSION TO [facility] AFTER ARRIVAL HOME TODAY. Chidi Davila, CASE MANAGEMENT DCP- Discharge Planning Updated by [id number]: Chidi Davila on 03/10/19 3:[address] Patient Name: ANTONINO ALMARAZ Admission Status: ER Accout number: [id number] Admission Date: 03-09-2019 : 1960 Admission Diagnosis: Attending: SUSAN YOO Current LOS: 1 Anticipated DC Date: 03-11-2019 Planned Disposition: Hospice Home Primary Insurance: MEDICARE A & B PLANNED EXTERNAL PROVIDER: [facility] Discharge Planning Comments: CM MET WITH PT AND DAUGHTER IN ROOM TO DISCUSS DISCHARGE PLANNING AND NEEDS. ANTONINO ALMARAZ provided verbal consent to discuss current and ongoing needs with/in the presence of: DAUGHTER, PATIENCE. 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 CM EXPLAINED HOW TO FILL OUT FORM AND INFORMED THEM HOURS OF NOTARY AVAILABILITY AT HOSPITAL. PT REPORTS LIVING AT HOME DEPENDENTLY ON BOYFRIEND WHO ASSISTS WITH MEDICATION MANAGEMENT, BATHING AND GETTING PT UP OUT OF BED. PT HAS HOME AND PORTABLE OXGYEN AND ROLLATOR WALKER WITH NO MEDICAL EQUIPMENT PROVIDER PREFERENCE. PT HAS NO OUTSIDE SERVICES ASSISTING IN THE HOME. CM DISCUSSED AVAILABILITY OF HOME HEALTH, REHAB SERVICES AND MEDICAL EQUIPMENT. PT AND DAUGHTER WOULD LIKE TO TALK TO HOSPICE, HAVE ALREADY SELECTED HOSPICE COMPANY, [facility]. CHOICE SIGNED. PT REPORTS HER FAMILY WILL PICK HER UP FOR DISCHARGE HOME. IMPORTANT MESSAGE FROM MEDICARE PROVIDED AND EXPLAINED. CM CALLED [facility], NOTIFIED DOROTHY OF REFERRAL AT [phone], CM FAXED REFERRAL INFORMATION TO [facility] AT [phone]. [facility] TO MEET WITH PT AND DAUGHTER THIS AFTERNOON. CM WAITING HOSPICE ADMISSION DETERMINATION AND MEDICAL EQUIPMENT ARRANGEMENT FOR [facility]. Flow Worker: Chidi Davila DCPIA - Discharge Planning Initial Assessment Updated by [id number]: Chidi Davila on 03/10/19 4:14 pm * Is the patient Alert and Oriented? Yes * How many steps to enter\exit or inside your home? * PCP DR. YOO * [facility] * Preadmission Environment Home with Family * ADLs Partial Dependent * Partial ADLs (Assistance needed) Bathing Medication Management Transfers * Equipment Oxygen Rolling Walker * Other Equipment ROLLATOR WALKER, HOME AND PORTABLE OXYGEN FROM UNKNOWN PROVIDER * List name and contact numbers for known caregivers / representatives who currently or will assist patient after discharge: ALIA LYONS, DTR, * Verbal permission to speak to the caregivers and representatives has been obtained from the patient. Yes * Community resources currently utilized None * Please name any agencies selected above. NONE * Additional services required to return to the preadmission environment? Yes * Can the patient safely return to the preadmission environment? Yes * Has this patient been hospitalized within the prior 30 days at any hospital? Yes Coverage Notice Reviewer: [id number] Davila Notice Issued Date-Time: 03/10/2019 15:45 Notice Type: Patient Choice Letter Notice Delivered To: Family Member Relationship to Patient: Daughter Dancing Instructor Name: ALIA LYONS Delivery Method: HAND - Hand Delivered Cara Days: Prior Verbal Notification: Recipient Understood Notice: Yes Recipient Signature: Yes Med Rec Note Co-signed by Attending: Coverage Notice Comment: [facility] Reviewer: [id number] Davila Notice Issued Date-Time: 03/10/2019 15:45 Notice Type: IM Discharge Notice Notice Delivered To: Family Member Relationship to Patient: Daughter Dancing Instructor Name: ALIA LYONS Delivery Method: HAND - Hand Delivered Cara Days: Prior Verbal Notification: Recipient Understood Notice: Yes Recipient Signature: Yes Med Rec Note Co-signed by Attending: Coverage Notice Comment: Reviewer: [id number] Shorty Rich Notice Issued Date-Time: 03/12/2019 10:15 Notice Type: IM Discharge Notice Notice Delivered To: Patient Relationship to Patient: Self Dancing Instructor Name: Delivery Method: HAND - Hand Delivered Cara Days: Prior Verbal Notification: Recipient Understood Notice: Yes Recipient Signature: Yes Med Rec Note Co-signed by Attending: Coverage Notice Comment: Last DP export: 03/12/19 10:01 a Patient Name: ANTONINO ALMARAZ Page [id number] at 1022 All edits/amendments must be made on the electronic document DICTATION DATE: 03/14/19 1022 PRINCIPAL ACCOUNTS CLERK: JIM 03/14/19 1022 RPT#: [id number] DC DATE:03/12/19 STATUS: DIS IN [facility] [address] [place] [address] END OF REPORT
== END 2019-03-12 18:18 | disposition home health service (06) | DRG 181 ==
LOC: D.ER 04:03 → D.M2 06:49
PROVIDERS: Family Medicine; ADMIT Family Medicine; ATTEND Family Medicine
DX: C34.90 Malignant neoplasm of unspecified part of unspecified bronchus or lung (principal); C79.31 Secondary malignant neoplasm of brain; E22.2 Syndrome of inappropriate secretion of antidiuretic hormone; E87.1 Hypo-osmolality and hyponatremia; G89.3 Neoplasm related pain (acute) (chronic); E87.6 Hypokalemia